=== PATIENT | male | born 1965 | race Caucasian/White ===

== ENCOUNTER → 2018-03-13 | Outpatient (CLI) | payer OTHER ==
[2018-03-13 07:35] LABS: Basophils % (A) 0 %; Eosinophils # (A) 0.2 k/uL (0-0.7); Eosinophils % (A) 3 %; HCT 45.9 % (39.0-53.0); HGB 15.2 gm/dL (13.0-17.5); Lymphocytes # (A) 1.9 k/uL (1.0-4.8); Lymphocytes % (A) 25 %; MCH 30.5 pg (25.0-35.0); MCHC 33.2 g/dL (31.0-37.0); Mean Platelet Volume 6.9; Monocytes # (A) 0.4 k/uL (0-1.0); Monocytes % (A) 5 %; Neutrophils # (A) 4.9 k/uL (1.3-7.7); Neutrophils % (A) 64 %; Platelet Count 353 k/uL (150-450); RBC 4.99 m/uL (4.30-5.90); RDW 12.4 % (11.5-15.5); WBC 7.7 k/uL (3.8-10.6)
[2018-03-13 09:34] LABS: ALT 33 U/L (21-72); AST 24 U/L (17-59); Albumin 4.2 g/dL (3.5-5.0); Alkaline Phosphatase 70 U/L (38-126); Anion Gap 12 mmol/L; Blood Urea Nitrogen 17 mg/dL (9-20); Calcium 9.2 mg/dL (8.4-10.2); Carbon Dioxide 27 mmol/L (22-30); Chloride 100 mmol/L (98-107); Cholesterol 135 mg/dL (<200); Glucose 105 mg/dL (74-99); HDL Cholesterol 62 mg/dL (40-60); LDL Cholesterol,Calculated 60 mg/dL (0-99); Potassium 3.7 mmol/L (3.5-5.1); Sodium 139 mmol/L (137-145); Total Bilirubin 0.5 mg/dL (0.2-1.3); Total Protein 7.4 g/dL (6.3-8.2); Triglycerides 67 mg/dL (<150)
[2018-03-13 09:49] LABS: T4, Free (Free Thyroxine) 1.21 ng/dL (0.78-2.19)
[2018-03-13 10:03] LABS: PSA Annual Screen 1.24 ng/mL (0.00-4.00)
== END | disposition home or self-care (01) ==
LOC: LABWHC1 06:32
PROVIDERS: ATTEND Family Medicine
DX: Z00.00 Encounter for general adult medical examination without abnormal findings (principal); Z12.5 Encounter for screening for malignant neoplasm of prostate
CPT/HCPCS: 84439; 80061; 80053; 84443; 85025; 36415; G0103

== ENCOUNTER 2018-12-01 18:44 | Emergency (ER) | payer OTHER ==
[2018-12-01 18:50] VITALS: TEMP 98.7
[2018-12-01] MEDS ORDERED: SODIUM CHLORIDE 0.9% 1,000 ML IV STA (19:13)
[2018-12-01 19:53] LABS: Basophils % (A) 0 %; Eosinophils # (A) 0.4 k/uL (0-0.7); Eosinophils % (A) 3 %; HCT 40.4 % (39.0-53.0); HGB 13.5 gm/dL (13.0-17.5); Lymphocytes % (A) 14 %; MCH 30.2 pg (25.0-35.0); MCHC 33.4 g/dL (31.0-37.0); MCV 90.6 fL (80.0-100.0); Mean Platelet Volume 6.8; Monocytes # (A) 0.9 k/uL (0-1.0); Monocytes % (A) 6 %; Neutrophils # (A) 10.8 k/uL (1.3-7.7); Neutrophils % (A) 76 %; Platelet Count 499 k/uL (150-450); RBC 4.45 m/uL (4.30-5.90); RDW 12.7 % (11.5-15.5); WBC 14.2 k/uL (3.8-10.6)
[2018-12-01 20:07] LABS: ALT 36 U/L (21-72); AST 18 U/L (17-59); Albumin 3.6 g/dL (3.5-5.0); Alkaline Phosphatase 78 U/L (38-126); Amylase 42 U/L (30-110); Anion Gap 7 mmol/L; Blood Urea Nitrogen 14 mg/dL (9-20); Calcium 8.9 mg/dL (8.4-10.2); Carbon Dioxide 26 mmol/L (22-30); Chloride 104 mmol/L (98-107); Glucose 111 mg/dL (74-99); Lipase 50 U/L (23-300); Potassium 4.3 mmol/L (3.5-5.1); Sodium 137 mmol/L (137-145); Total Bilirubin 0.5 mg/dL (0.2-1.3); Total Protein 7.4 g/dL (6.3-8.2)
[2018-12-01] MEDS ORDERED: BENZOCAINE/MENTHOL LOZENG 1 EACH LOZENGE MUCOUS MEM STA (20:09)
--- NOTE | 2018-12-01 20:09 | XR ---
Abdomen single view. History fever. Cough. Comparison none. FINDINGS: 2 views upright were obtained and show no sign of intestinal obstruction or pneumoperitoneum. Fecal p attern is normal. There are no pathologic calcifications over the kidneys. There are clips at the gas troesophageal junction. Impression Nonacute abdomen.
[2018-12-01 20:10] LABS: Creatine Kinase 46 U/L (55-170)
[2018-12-01] MEDS ORDERED: BENZONATATE 100 MG CAP PO STA (20:10)
--- NOTE | 2018-12-01 20:10 | XR ---
EXAMINATION TYPE: XR chest 2V DATE OF EXAM: 12/01/2018 COMPARISON: 05/26/2015 HISTORY: Cough and fever TECHNIQUE: Frontal and lateral views of the chest are obtained. FINDINGS: Heart and mediastinum are normal. There is a small infiltrate in the left lower lobe. The other lung adrian are clear. There are no hilar masses. There is no pleural effusion. IMPRESSION: Mild left lower lobe pneumonia. This appears improved compared to old exam.
--- NOTE | 2018-12-01 20:21 | ED ---
URI HPI - General Chief Complaint: Upper Respiratory Infection Stated Complaint: fever, cough, SOB Time Seen by Provider: 12/01/18 18:57 Source: patient Mode of arrival: ambulatory Limitations: no limitations - History of Present Illness Initial Comments: 53-year-old male patient presents to the emergency department today for evaluation of persistent cough and fever. Patient states the cough started approximately 2 weeks ago. States that it has persisted and become worse. States he has now developed fever over the last week. States this has been as high as 102F at home. States he has had chills and body aches with this. He denies any sputum production with this cough. Denies any hemoptysis. Denies any chest pain but states that he has been having increasing difficulty with breathing especially with activity. Patient denies any history of smoking. Denies any other upper respiratory symptoms with onset of cough. Patient denies any recent rash, abdominal pain, nausea, vomiting, diarrhea, constipation, back pain, numbness, tingling, dizziness, weakness, hematuria, dysuria, urinary urgency, urinary frequency, headache, visual changes, or any other complaints. - Related Data Home Medications Medication Instructions Recorded Confirmed Amlodipine/Valsartan/Hcthiazid 1 tab PO DAILY 03/25/15 12/01/18 [Exforge Hct 10-320-25 mg Tab] Acetaminophen [Tylenol Extra 1,000 mg PO Q6H PRN 12/01/18 12/01/18 Strength] Cholecalciferol (Vitamin D3) 2,000 unit PO DAILY 12/01/18 12/01/18 [Vitamin D3] Promethaz-Cod 6.25-10 mg/5 ml 5 ml PO Q6HR PRN 12/01/18 12/01/18 [Phenergan with Codeine] Previous Rx's Medication Instructions Recorded Albuterol Sulfate [Proair Hfa] 1 - 2 puff INHALATION Q6HR PRN #1 12/01/18 inhaler Azithromycin [Zithromax Z-pack] 0 mg PO DIRECTED #6 tab 12/01/18 Benzonatate [Tessalon Perles] 100 mg PO TID #15 cap 12/01/18 Allergies Allergy/AdvReac Type Severity Reaction Status Date / Time acetaminophen [From Leonidas] Allergy Hallucinati Verified 12/01/18 19:51 ons hydrocodone bitartrate Allergy Hallucinati Verified 12/01/18 19:51 [From Leonidas] ons Review of Systems ROS Statement: Those systems with pertinent positive or pertinent negative responses have been documented in the HPI. ROS Other: All systems not noted in ROS Statement are negative. Past Medical History Past Medical History: GERD/Reflux, Hypertension, Osteoarthritis (OA), Prostate Disorder Additional Past Medical History / Comment(s): HIATAL HERNIA History of Any Multi-Drug Resistant Organisms: None Reported Past Surgical History: Orthopedic Surgery Additional Past Surgical History / Comment(s): LEFT ROTATOR CUFF Past Anesthesia/Blood Transfusion Reactions: No Reported Reaction Past Psychological History: No Psychological Hx Reported Smoking Status: Never smoker Past Alcohol Use History: Occasional Past Drug Use History: None Reported - Past Family History Mother Family Medical History: No Reported History Sister(s) Family Medical History: Cancer Additional Family Medical History / Comment(s): BREAST General Exam Limitations: no limitations General appearance: alert, in no apparent distress, other (This is a well- developed, well-nourished adult male patient in no acute distress. Vital signs upon presentation are temperature 98.7F, pulse 110, respirations 20, blood pressure 151/91, pulse ox 100% on room air.) Eye exam: Present: normal appearance, PERRL, EOMI. Absent: scleral icterus, conjunctival injection, periorbital swelling ENT exam: Present: normal exam, normal oropharynx, mucous membranes moist, TM's normal bilaterally Respiratory exam: Present: normal lung sounds bilaterally. Absent: respiratory distress, wheezes, rales, rhonchi, stridor Cardiovascular Exam: Present: normal rhythm, tachycardia, normal heart sounds. Absent: systolic murmur, diastolic murmur, rubs, gallop, clicks GI/Abdominal exam: Present: soft, normal bowel sounds. Absent: distended, tenderness, guarding, rebound, rigid Neurological exam: Present: alert, oriented X3, CN II-XII intact Psychiatric exam: Present: normal affect, normal mood Skin exam: Present: warm, dry, intact, normal color. Absent: rash Course Vital Signs 12/01/18 12/01/18 12/01/18 18:47 19:29 19:30 Temperature 98.7 F Pulse Rate 110 H Respiratory 20 Rate Blood Pressure 151/91 146/91 146/91 O2 Sat by Pulse 100 Oximetry 12/01/18 12/01/18 12/01/18 20:00 20:30 21:00 Temperature Pulse Rate 91 Respiratory 18 Rate Blood Pressure 113/85 131/76 131/79 O2 Sat by Pulse 100 Oximetry Medical Decision Making - Medical Decision Making 53-year-old male patient presents to emergency department today for complaints of cough, shortness of breath, and fever. Physical examination was unremarkable. Lungs are clear to auscultation with good air movement. Vital signs were stable with normal oxygen saturation. Labs reviewed and did reveal elevated white blood cell count of 14.6. Chest x-ray did reveal left lower lobe pneumonia. Did discuss findings and results with the patient. We did give IM dose of Rocephin and sent with a prescription for azithromycin. We did discuss return parameters in detail. He is instructed to follow-up with his primary care physician for recheck in 1-2 days. Return parameters were discussed in detail. He verbalizes understanding and agrees with this plan. - Lab Data Result diagrams: 12/01/18 19:35 12/01/18 19:35 Lab Results 12/01/18 12/01/18 12/01/18 Range/Units 19:35 19:35 19:35 WBC 14.2 H (3.8-10.6) k/uL RBC 4.45 (4.30-5.90) m/uL Hgb 13.5 (13.0-17.5) gm/dL Hct 40.4 (39.0-53.0) % MCV 90.6 (80.0-100.0) fL MCH 30.2 (25.0-35.0) pg MCHC 33.4 (31.0-37.0) g/dL RDW 12.7 (11.5-15.5) % Plt Count 499 H (150-450) k/uL Neutrophils % 76 % Lymphocytes % 14 % Monocytes % 6 % Eosinophils % 3 % Basophils % 0 % Neutrophils # 10.8 H (1.3-7.7) k/uL Lymphocytes # 2.0 (1.0-4.8) k/uL Monocytes # 0.9 (0-1.0) k/uL Eosinophils # 0.4 (0-0.7) k/uL Basophils # 0.0 (0-0.2) k/uL Sodium 137 (137-145) mmol/L Potassium 4.3 (3.5-5.1) mmol/L Chloride 104 (98-107) mmol/L Carbon Dioxide 26 (22-30) mmol/L Anion Gap 7 mmol/L BUN 14 (9-20) mg/dL Creatinine 0.85 (0.66-1.25) mg/dL Est GFR (CKD-EPI)AfAm >90 (>60 ml/min/1.73 sqM) Est GFR (CKD-EPI)NonAf >90 (>60 ml/min/1.73 sqM) Glucose 111 H (74-99) mg/dL Plasma Lactic Acid Vu (0.7-2.0) mmol/L Calcium 8.9 (8.4-10.2) mg/dL Total Bilirubin 0.5 (0.2-1.3) mg/dL AST 18 (17-59) U/L ALT 36 (21-72) U/L Alkaline Phosphatase 78 (38-126) U/L Total Creatine Kinase 46 L (55-170) U/L CK-MB (CK-2) 0.3 (0.0-2.4) ng/mL CK-MB (CK-2) Rel Index 0.7 Troponin I <0.012 (0.000-0.034) ng/mL Total Protein 7.4 (6.3-8.2) g/dL Albumin 3.6 (3.5-5.0) g/dL Amylase 42 (30-110) U/L Lipase 50 (23-300) U/L 12/01/18 Range/Units 19:35 WBC (3.8-10.6) k/uL RBC (4.30-5.90) m/uL Hgb (13.0-17.5) gm/dL Hct (39.0-53.0) % MCV (80.0-100.0) fL MCH (25.0-35.0) pg MCHC (31.0-37.0) g/dL RDW (11.5-15.5) % Plt Count (150-450) k/uL Neutrophils % % Lymphocytes % % Monocytes % % Eosinophils % % Basophils % % Neutrophils # (1.3-7.7) k/uL Lymphocytes # (1.0-4.8) k/uL Monocytes # (0-1.0) k/uL Eosinophils # (0-0.7) k/uL Basophils # (0-0.2) k/uL Sodium (137-145) mmol/L Potassium (3.5-5.1) mmol/L Chloride (98-107) mmol/L Carbon Dioxide (22-30) mmol/L Anion Gap mmol/L BUN (9-20) mg/dL Creatinine (0.66-1.25) mg/dL Est GFR (CKD-EPI)AfAm (>60 ml/min/1.73 sqM) Est GFR (CKD-EPI)NonAf (>60 ml/min/1.73 sqM) Glucose (74-99) mg/dL Plasma Lactic Acid Vu 1.3 (0.7-2.0) mmol/L Calcium (8.4-10.2) mg/dL Total Bilirubin (0.2-1.3) mg/dL AST (17-59) U/L ALT (21-72) U/L Alkaline Phosphatase (38-126) U/L Total Creatine Kinase (55-170) U/L CK-MB (CK-2) (0.0-2.4) ng/mL CK-MB (CK-2) Rel Index Troponin I (0.000-0.034) ng/mL Total Protein (6.3-8.2) g/dL Albumin (3.5-5.0) g/dL Amylase (30-110) U/L Lipase (23-300) U/L - EKG Data -: EKG Interpreted by Ga EKG Comments: EKG obtained in 192 shows sinus tachycardia with a ventricular rate of 108, DE interval 138, QRS duration 74, QT 312, QTC 418. No evidence of ST elevation or depression. - Radiology Data Radiology results: report reviewed, image reviewed KUB x-ray of the abdomen is obtained. Report was reviewed in its entirety. Impression by Dr. Cross shows nonacute abdomen. Two-view x-ray of the chest is obtained. Report was reviewed in its entirety. Impression by Dr. Jaramillo shows mild left lower lobe pneumonia. This appears improved compared to old exam. Disposition Clinical Impression: Left lower lobe pneumonia Disposition: HOME SELF-CARE Condition: Good Instructions (If sedation given, give patient instructions): Pneumonia (ED) Additional Instructions: Complete antibiotic prescription in full. Take medications as directed. Follow up with your primary care physician for recheck in 1-2 days. Return to the emergency department for recheck in 1-2 days. Prescriptions: Albuterol Sulfate [Proair Hfa] 1 - 2 puff INHALATION Q6HR PRN #1 inhaler PRN Reason: Shortness Of Breath Azithromycin [Zithromax Z-pack] 0 mg PO DIRECTED #6 tab Benzonatate [Tessalon Perles] 100 mg PO TID #15 cap Is patient prescribed a controlled substance at d/c from ED?: No Referrals: Nathan Ortez MD [Primary Care Provider] - 1-2 days Time of Disposition: 20:49
[2018-12-01 20:23] LABS: Creatine Kinase MB 0.3 ng/mL (0.0-2.4); Troponin I <0.012 ng/mL (0.000-0.034)
[2018-12-01] MEDS ORDERED: cefTRIAXone 1,000 MG VIAL (IM USE) IM STA (20:47)
[2018-12-01 21:05] VITALS: BP 131/79; PULSE 91; RESP 18
== END 2018-12-01 21:11 | disposition home or self-care (01) ==
LOC: EC 18:44
DX: J18.9 Pneumonia, unspecified organism (principal); I10 Essential (primary) hypertension; M19.90 Unspecified osteoarthritis, unspecified site; Z79.899 Other long term (current) drug therapy; Z88.6 Allergy status to analgesic agent; Z88.5 Allergy status to narcotic agent
CPT/HCPCS: 36415; 93005; 80053; 82150; 82550; 82553; 83605; 83690; 84484; 85025; 87040; 71046; 74018; 99285; 96360; 96372; J0696

== ENCOUNTER → 2019-04-12 | Outpatient (CLI) | payer OTHER ==
--- NOTE | 2019-04-12 14:05 | XR ---
EXAMINATION TYPE: XR chest 2V DATE OF EXAM: 04/12/2019 COMPARISON: 12/01/2018 HISTORY: Pneumonia. Follow-up exam. TECHNIQUE: Frontal and lateral views of the chest are obtained. FINDINGS: Retrocardiac airspace disease has resolved in the interim. There is no focal air space [place], pleural effusion, or pneumothorax seen. The cardiac silhouette size is likely enlarged. The osseous structures are intact. Moderate multilevel degenerative changes of the spine are noted. IMPRESSION: No acute cardiopulmonary process. Resolution of the previously seen left basilar airspac e disease. History notes pulmonary nodule. No discrete pulmonary nodule is seen on chest x-ray howeve r CT would be committed if there is concern for pulmonary nodule as there is increased spatial resolu tion and increased sensitivity.
== END ==
LOC: RADXRMAIN 09:31
PROVIDERS: ATTEND Family Medicine
DX: J18.9 Pneumonia, unspecified organism (principal)
CPT/HCPCS: 71046

== ENCOUNTER → 2019-07-10 | Outpatient (CLI) | payer OTHER ==
--- NOTE | 2019-07-10 14:20 | FL ---
EXAMINATION TYPE: FL barium swallow DATE OF EXAM: 07/10/2019 CLINICAL HISTORY: Status post Vahid fundoplication 5 years ago. Gastroesophageal reflux and dysphagi a. TECHNIQUE: A single contrast esophagram is performed utilizing thin barium. A total of 2.08 minutes of fluoroscopic time was utilized during procedure. 52 fluoroscopic images were saved. COMPARISON: None FINDINGS: The patient swallows barium without difficulty. Barium extends readily to the distal esopha antwan, however at the distal esophagus near the gastroesophageal junction there is delay and narrowing. Incomplete stricture is seen with the ventral passage of contrast through the gastroesophageal junct ion. There is some mild proximal dilatation of the esophagus prior to passage. Discoordinated contrac tions are seen in the upright position exaggerated on the supine position with few tertiary contracti ons. No focal outpouching is seen. Mild intraesophageal reflux in the upright position and severe int raesophageal reflux on the supine position are seen. No gastroesophageal reflux is seen during the ex amination. IMPRESSION: Incomplete stricture at the gastroesophageal junction resulting in mild intraesophageal reflux and th e upright position and severe in the supine position.
== END ==
LOC: RADUSWWP 09:04
PROVIDERS: ATTEND Surgery Plastic and Reconstructive Surgery
DX: K21.9 Gastro-esophageal reflux disease without esophagitis (principal)
CPT/HCPCS: 74220

== ENCOUNTER → 2019-07-10 | Outpatient (CLI) | payer OTHER | END | disposition home or self-care (01) | LOC: LABPAT 09:07 | PROVIDERS: ATTEND Surgery Plastic and Reconstructive Surgery | DX: Z01.810 Encounter for preprocedural cardiovascular examination (principal) | CPT/HCPCS: 93005 ==

== ENCOUNTER 2019-07-18 07:55 | Day surgery (SDC) | payer OTHER ==
[2019-07-17 09:43] VITALS: BMI 32.1
--- NOTE | 2019-07-17 19:33 | P.GSHP ---
History of Present Illness H&P Date: 07/18/19 CHIEF COMPLAINT: GERD and colon screen HISTORY OF PRESENT ILLNESS: The patient is a 54-year-old male who presents with gastroesophageal reflux disease and need for colon screen. Upper and lower endoscopy were offered for further evaluation and management. PAST MEDICAL HISTORY: Please see list. PAST SURGICAL HISTORY: Please see list. MEDICATIONS: Please see list. ALLERGIES: Please see list. SOCIAL HISTORY: No illicit drug use FAMILY HISTORY: No reports of Crohn disease or ulcerative colitis. REVIEW OF ORGAN SYSTEMS: CONSTITUTIONAL: No reports of fevers or chills. GI: Denies any blood in stools or constipation. PHYSICAL EXAM: VITAL SIGNS: Stable GENERAL: Well-developed pleasant in no acute distress. HEENT: No scleral icterus. Extraocular movements grossly intact. Moist buccal mucosa. NECK: Supple without lymphadenopathy. CHEST: Unlabored respirations. Equal bilateral excursions. CARDIOVASCULAR: Regular rate and rhythm. Distal 2+ pulses. ABDOMEN: Soft, nondistended. MUSCULOSKELETAL: No clubbing, cyanosis, or edema. ASSESSMENT: 1. Gastroesophageal reflux disease 2. Colon screen. PLAN: 1. Recommend proceeding with an upper and lower endoscopy Past Medical History Past Medical History: GERD/Reflux, Hypertension, Osteoarthritis (OA), Prostate Disorder Additional Past Medical History / Comment(s): HIATAL HERNIA, dysphagia w/solids sarah. in the AM, hx. colon polyps, loose stools History of Any Multi-Drug Resistant Organisms: None Reported Past Surgical History: Orthopedic Surgery Additional Past Surgical History / Comment(s): LEFT ROTATOR CUFF, repair of hiatal hernia Past Anesthesia/Blood Transfusion Reactions: No Reported Reaction Smoking Status: Never smoker - Past Family History Mother Family Medical History: No Reported History Sister(s) Family Medical History: Cancer Additional Family Medical History / Comment(s): BREAST Medications and Allergies Home Medications Medication Instructions Recorded Confirmed Type Amlodipine/Valsartan/Hcthiazid 1 tab PO DAILY 03/25/15 07/17/19 History [Exforge Hct 10-320-25 mg Tab] Omeprazole [PriLOSEC] 40 mg PO DAILY 07/17/19 07/17/19 History Allergies Allergy/AdvReac Type Severity Reaction Status Date / Time acetaminophen [From Antimony] AdvReac Hallucinati Verified 07/17/19 09:11 ons hydrocodone bitartrate AdvReac Hallucinati Verified 07/17/19 09:11 [From Antimony] ons
[~2019-07-18 07:55] MED LIST: LACTATED RINGERS 1,000 ML IV SCH
[2019-07-18 08:14] VITALS: RESP 16; TEMP 97.9
[2019-07-18] MEDS ORDERED: LIDOCAINE 1% 20 ML VIAL (10MG/ML) FOR IV START INTRADERMA ONE (08:15)
[2019-07-18] MEDS ORDERED: PROPOFOL 10 MG/ML 20 ML VIAL IV ONE (08:21)
[2019-07-18] MEDS ORDERED: LIDOCAINE 1% INJ 10MG/ML (20 ML MDV) ONE (08:21)
--- NOTE | 2019-07-18 08:58 | P.PCN ---
Date of Procedure: 07/18/19 Description of Procedure: PREOPERATIVE DIAGNOSIS: Gastroesophageal reflux disease. Previous history of Vahid fundoplasty POSTOPERATIVE DIAGNOSIS: Gastroesophageal reflux disease. Previous history of Vahid fundoplasty Diaphragmatic hiatal hernia, recurrent with erosive esophagitis OPERATION: Esophagogastroduodenoscopy SURGEON: Marily Bain MD ANESTHESIA: MAC. INDICATIONS: The patient is a 54-year-old male who presents with a history of reflux disease. Benefits and risks of the procedure were described. Informed consent was obtained. DESCRIPTION: The patient was brought into the endoscopy suite and laid in the left lateral decubitus position. An Olympus gastroscope was passed along the posterior oropharynx down to the distal esophagus where the squamocolumnar junction was encountered at 41 cm from the incisors. The stomach was entered and no bile reflux was found. Additional findings are listed below. Biopsies with cold forceps were obtained of the antrum. The first through third portion of the duodenum was examined and unremarkable. Retroflexion of the scope confirmed Hill grade 3 lower esophageal valve. The squamocolumnar junction demonstrated LA grade B erosive esophagitis. The stomach was desufflated. The patient tolerated the procedure well. FINDINGS: Squamocolumnar junction 33 cm from the incisors. Diaphragmatic hiatus at 40 cm. Hiatal hernia, 7 cm Hill grade 3 lower esophageal valve. LA grade B erosive esophagitis. No active duodenitis. RECOMMENDATIONS: Upper endoscopy as needed.
--- NOTE | 2019-07-18 08:59 | P.PCN ---
Date of Procedure: 07/18/19 Description of Procedure: PREOPERATIVE DIAGNOSIS: Colonoscopy screening. History of colon polyps POSTOPERATIVE DIAGNOSIS: Colonoscopy screening. History of colon polyps Diverticulosis, scattered. OPERATION: Colonoscopy to the ileocecal valve and appendiceal orifice. SURGEON: Marily Bain MD. ANESTHESIA: MAC. INDICATIONS: The patient is a 54-year-old female who presents for colonoscopy screening. Last colonoscopy 5 years ago. Benefits and risks were described and informed consent was obtained. DESCRIPTION OF PROCEDURE: The patient had undergone Suprep. He had been brought into the operating room and laid in the left lateral decubitus position. After adequate intravenous sedation, the rectum was examined with 2% lidocaine jelly. No external hemorrhoids were encountered. The rectal tone was within normal limits. No lesions were palpated in the rectal vault. An Olympus colonoscope was advanced until the ileocecal valve and appendiceal orifice were clearly viewed. The prep was good. Scattered diverticulosis was encountered. No colonic polyps were found. No evidence of focal colitis was found. Retroflexion of the scope demonstrated grade 1 internal hemorrhoids without active bleeding or inflammation. The colon was desufflated. The patient had tolerated the procedure well. Withdrawal time was over 6 minutes. FINDINGS: Aronchick preparation quality scale 2 (1-5) Internal hemorrhoids, grade 1 No external prolapsed hemorrhoids. No arteriovenous malformations. No adenomatous polyps. No focal colitis. Scattered diverticulosis RECOMMENDATIONS: Lower endoscopy in 5 years, 2023 Plan - Discharge Summary Discharge Rx Participant: No New Discharge Prescriptions: No Action Amlodipine/Valsartan/Hcthiazid [Exforge Hct 10-320-25 mg Tab] 1 tab PO DAILY Omeprazole [PriLOSEC] 40 mg PO DAILY Discharge Medication List Amlodipine/Valsartan/Hcthiazid [Exforge Hct 10-320-25 mg Tab] 1 tab PO DAILY 03/25/15 [History] Omeprazole [PriLOSEC] 40 mg PO DAILY 07/17/19 [History] Follow up Appointment(s)/Referral(s): Marily Bain MD [STAFF PHYSICIAN] - 07/29/19 Patient Instructions/Handouts: Hiatal Hernia (DC), Diverticulosis (DC), Diverticulosis (GEN), Diverticulosis Diet (GEN) Discharge Disposition: HOME SELF-CARE
[2019-07-18 09:14] VITALS: BP 152/89; PULSE 85
== END 2019-07-18 09:24 | disposition home or self-care (01) ==
LOC: ORWHC2ENDO 07:55
PROVIDERS: ATTEND Surgery Plastic and Reconstructive Surgery
DX: K21.0 Gastro-esophageal reflux disease with esophagitis (principal); Z12.11 Encounter for screening for malignant neoplasm of colon; Z86.010 Personal history of colon polyps; K44.9 Diaphragmatic hernia without obstruction or gangrene; K57.30 Diverticulosis of large intestine without perforation or abscess without bleeding; I10 Essential (primary) hypertension; M19.90 Unspecified osteoarthritis, unspecified site; Z80.3 Family history of malignant neoplasm of breast; Z79.899 Other long term (current) drug therapy; Z88.5 Allergy status to narcotic agent; K64.0 First degree hemorrhoids
CPT/HCPCS: 43235; J2001; J2704; G0105

== ENCOUNTER → 2019-10-11 | Outpatient (CLI) | payer OTHER ==
[2019-10-11 09:23] LABS: HCT 44.5 % (39.0-53.0); HGB 15.1 gm/dL (13.0-17.5); MCH 30.9 pg (25.0-35.0); MCHC 33.9 g/dL (31.0-37.0); MCV 91.3 fL (80.0-100.0); Mean Platelet Volume 7.4; Platelet Count 370 k/uL (150-450); RBC 4.88 m/uL (4.30-5.90); RDW 12.2 % (11.5-15.5); WBC 5.5 k/uL (3.8-10.6)
== END | disposition home or self-care (01) ==
LOC: LABPAT 08:26
PROVIDERS: ATTEND Anesthesiology
DX: Z01.812 Encounter for preprocedural laboratory examination (principal); K44.9 Diaphragmatic hernia without obstruction or gangrene
CPT/HCPCS: 36415; 85027

== ENCOUNTER 2019-10-17 11:46 | Observation (INO) | payer OTHER ==
[2019-10-10 12:11] VITALS: BMI 30.6
--- NOTE | 2019-10-16 22:19 | P.GSHP ---
History of Present Illness H&P Date: 10/17/19 CHIEF COMPLAINT: Paraesophageal hiatal hernia with gastroesophageal reflux disease. HISTORY OF PRESENT ILLNESS: The patient is a 54-year-old male who presents with paraesophageal hiatal hernia. Now she presents for surgical intervention. PAST MEDICAL HISTORY: Please see list. PAST SURGICAL HISTORY: Please see list. MEDICATIONS: Please see list. ALLERGIES: Please see list. SOCIAL HISTORY: No illicit drug use FAMILY HISTORY: No reports of Crohn disease or ulcerative colitis. REVIEW OF ORGAN SYSTEMS: CONSTITUTIONAL: No reports of fevers or chills. GI: Denies any blood in stools or constipation. PHYSICAL EXAM: VITAL SIGNS: Stable GENERAL: Well-developed pleasant and in no acute distress. HEENT: No scleral icterus. Extraocular movements grossly intact. Moist buccal mucosa. NECK: Supple without lymphadenopathy. CHEST: Unlabored respirations. Equal bilateral excursions. CARDIOVASCULAR: Regular rate and rhythm. Distal 2+ pulses. ABDOMEN: Soft, nondistended. No peritoneal signs. MUSCULOSKELETAL: No clubbing, cyanosis, or edema. SKIN: Well-perfused. Good skin turgor. ASSESSMENT: 1. Diaphragmatic paraesophageal hiatal hernia with severe gastroesophageal reflux disease. PLAN: 1. Recommend proceeding with a robotic paraesophageal hiatal hernia with possi ble mesh. 2. Benefits and risks of surgical intervention was discussed including possibility of open technique. 3. Inpatient hospitalization recommended of 2 nights 4. DVT prophylaxis. 5. Antibiotic prophylaxis. 6. She has also completed a very low caloric high-protein diet to address underlying hepatomegaly. Past Medical History Past Medical History: GERD/Reflux, Hypertension, Osteoarthritis (OA), Prostate Disorder Additional Past Medical History / Comment(s): HIATAL HERNIA History of Any Multi-Drug Resistant Organisms: None Reported Past Surgical History: Orthopedic Surgery Additional Past Surgical History / Comment(s): LEFT ROTATOR CUFF Past Anesthesia/Blood Transfusion Reactions: No Reported Reaction Smoking Status: Never smoker - Past Family History Mother Family Medical History: No Reported History Sister(s) Family Medical History: Cancer Additional Family Medical History / Comment(s): BREAST Medications and Allergies Home Medications Medication Instructions Recorded Confirmed Type Amlodipine/Valsartan/Hcthiazid 1 tab PO DAILY 03/25/15 10/10/19 History [Exforge Hct 10-320-25 mg Tab] Omeprazole [PriLOSEC] 40 mg PO DAILY 07/17/19 10/10/19 History Allergies Allergy/AdvReac Type Severity Reaction Status Date / Time hydrocodone bitartrate AdvReac Hallucinati Verified 10/10/19 11:59 [From Merom] ons
[~2019-10-17 11:46] MED LIST changes: +ACETAMINOPHEN TAB 500 MG TAB PO STA; +CHLORHEXIDINE GLUCONATE 15 ML CUP MUCOUS MEM ONE; +DEXAMETHASONE SOD PHOSPHATE 10 MG/ML 1 ML VIAL IV ONE; +GABAPENTIN 300 MG CAP PO STA; +HEPARIN SODIUM,PORCINE 5,000 UNIT/ML 1 ML VIAL SQ ONE; +HYDROmorphone 0.5 MG/0.5 ML SYRINGE IVP PRN; +LIDOCAINE 1% 20 ML VIAL (10MG/ML) FOR IV START INTRADERMA PRN; +MIDAZOLAM 2 MG/2 ML VIAL IV PRN; +ONDANSETRON 4 MG/2 ML VIAL IVP ONE; +PANTOPRAZOLE 40 MG/10 ML VIAL IV STA; +SCOPOLAMINE 1.5MG/72HR PATCH TRANSDERM ONE; +TAMSULOSIN 0.4 MG CAP.ER.24H PO STA
[2019-10-17 13:02] LABS: ALT 19 U/L (4-49); AST 33 U/L (17-59); African American GFR (CKD) >90 (>60 ml/min/1.73 sqM); Albumin 4.7 g/dL (3.5-5.0); Alkaline Phosphatase 78 U/L (38-126); Anion Gap 12 mmol/L; Blood Urea Nitrogen 16 mg/dL (9-20); Calcium 9.6 mg/dL (8.4-10.2); Carbon Dioxide 26 mmol/L (22-30); Chloride 103 mmol/L (98-107); Glucose 89 mg/dL (74-99); Non-African American GFR(CKD) >90 (>60 ml/min/1.73 sqM); Sodium 141 mmol/L (137-145); Total Bilirubin 0.9 mg/dL (0.2-1.3); Total Protein 8.6 g/dL (6.3-8.2)
[2019-10-17 13:04] LABS: Potassium 4.2 mmol/L (3.5-5.1)
[2019-10-17 13:27] LABS: Basophils % (A) 0 %; Eosinophils # (A) 0.2 k/uL (0-0.7); Eosinophils % (A) 2 %; HCT 44.4 % (39.0-53.0); HGB 15.2 gm/dL (13.0-17.5); Lymphocytes # (A) 1.7 k/uL (1.0-4.8); Lymphocytes % (A) 15 %; MCHC 34.3 g/dL (31.0-37.0); MCV 90.6 fL (80.0-100.0); Mean Platelet Volume 7.7; Monocytes # (A) 0.6 k/uL (0-1.0); Monocytes % (A) 6 %; Neutrophils # (A) 8.3 k/uL (1.3-7.7); Neutrophils % (A) 76 %; Platelet Count 367 k/uL (150-450); RDW 12.4 % (11.5-15.5); WBC 10.9 k/uL (3.8-10.6)
[2019-10-17] MEDS ORDERED: MIDAZOLAM 2 MG/2 ML VIAL IVP ONE (13:44)
[2019-10-17] MEDS ORDERED: fentaNYL (PF) 50 MCG/ML 2 ML AMP IV ONE (13:44)
--- NOTE | 2019-10-17 14:27 | P.ANPRN ---
Procedure Note - Anesthesia - Nerve Block Performed Bilateral Transversus Abdominis Single Time Out Performed: Yes Date of Procedure: 10/17/19 Procedure Start Time: 13:42 Procedure Stop Time: 13:47 Location of Patient: PreOp Indication: Acute Post-Operative Pain, Dx/Pain Location, Requested by Surgeon Sedation Type: Sedate with meaningful contact maintained Position: Supine Catheter: None Needle Types: Pajunk Needle Gauge: 21 Ultrasound used to visualize needle placement: Yes Ultrasound used to observe medication spread: Yes Injectate: Other (see comment) (0.5% ropivacaine 15cc with 2% lidocaine with 1:200k epi 5cc each side) Blood Aspirated: No Pain Paresthesia on Injection Noted: No Resistance on Injection: Normal Image Stored and Saved: Yes Events: Uneventful and Well Tolerated
[2019-10-17] MEDS ORDERED: SUCCINYLCHOLINE CHLORIDE 100 MG/5 ML SYR IV ONE (14:45)
[2019-10-17] MEDS ORDERED: PROPOFOL 10 MG/ML 20 ML VIAL IV ONE (14:45)
[2019-10-17] MEDS ORDERED: LIDOCAINE 1% INJ 10MG/ML (20 ML MDV) ONE (14:45)
[2019-10-17] MEDS ORDERED: NEOSTIGMINE 1 MG/ML 10 ML VIAL ONE (14:45)
[2019-10-17] MEDS ORDERED: fentaNYL (PF) 50 MCG/ML 2 ML AMP ONE (14:45)
[2019-10-17] MEDS ORDERED: ROPIVACAINE 5 MG/ML 30 ML VIAL ONE (14:45)
[2019-10-17] MEDS ORDERED: ePHEDrine SULFATE/0.9% NACL/PF 50 MG/5 ML SYRINGE IV ONE (14:45)
[2019-10-17] MEDS ORDERED: LIDOCAINE 2%-EPI 1:100,000 20 ML VIAL ONE (14:45)
[2019-10-17] MEDS ORDERED: MIDAZOLAM 2 MG/2 ML VIAL ONE (14:45)
[2019-10-17] MEDS ORDERED: GLYCOPYRROLATE 0.2 MG/ML 2 ML VIAL ONE (14:45)
[2019-10-17] MEDS ORDERED: ROCURONIUM BROMIDE 10 MG/ML 10 ML VIAL IV ONE (14:45)
[2019-10-17] MEDS ORDERED: PHENYLEPHRINE-0.9% NACL SYG 1 MG/10 ML SYRINGE ONE (14:45)
[2019-10-17] MEDS ORDERED: BUPIVACAIN-EPI 0.25%-1:200,000 30 ML VIAL SQ ONE ×2 (15:08→15:17)
[2019-10-17] MEDS ORDERED: LACTATED RINGERS 1,000 ML IV ONE ×6 (15:32→15:45)
[2019-10-17 18:03] VITALS: RESP 16
[2019-10-17] MEDS ORDERED: NALOXONE 0.4 MG/ML 1 ML VIAL IV PRN (18:41)
[2019-10-17] MEDS ORDERED: ACETAMINOPHEN IV (For NPO) 1,000 MG in EMPTY BAG 1 BAG IVPB ONE (18:41)
[2019-10-17] MEDS ORDERED: diphenhydrAMINE 50 MG/ML 1 ML VIAL IVP PRN (19:38)
--- NOTE | 2019-10-17 19:52 | P.OP ---
Date of Procedure: 10/17/19 Description of Procedure: SURGEON: JANIA DOCKERY MD PREOPERATIVE DIAGNOSES: 1. Paraesophageal hiatal hernia, midline, recurrent 2. Gastroesophageal reflux disease 3. Hypertensive heart disease 4. Ineffective esophageal dysmotility 5. Obesity due to excess calories, BMI 31.1 POSTOPERATIVE DIAGNOSES: 1. Paraesophageal hiatal hernia, midline, recurrent 2. Gastroesophageal reflux disease 3. Hypertensive heart disease 4. Ineffective esophageal dysmotility 5. Obesity due to excess calories, BMI 31.1 6. Mchugh's esophagus 7. Dehydration with hypotension 8. Peritoneal adhesions, left upper quadrant omentum to abdominal wall and perigastric OPERATION: 1. Robotic-assisted da Ernesto Xi laparoscopic takedown of Vahid fundoplasty with extensive lysis of adhesions over 1.5 hour for perigastric adhesions 2. Robotic-assisted da Ernesto Xi laparoscopic reduction and repair of recurrent incarcerated paraesophageal hiatal hernia, 5 x 4 cm, with Andrews Biopatch A 8 x 8 cm. 3. Intraoperative esophagogastroduodenoscopy 4. Placement of 56-Micronesian bougie for pre-existing esophageal stricture Implants: Andrews Biopatch A 8 x 8 cm Anesthesia: GETA, local Estimated Blood Loss (ml): 5 Pathology: none sent Condition: stable Disposition: floor Operative Findings: 1. Recurrent incarcerated paraesophageal hiatal hernia, 7 x 4 cm 2. Severe peritoneal adhesions perigastric with incarcerated hiatal hernia of gastric pouch with obstruction requiring over 1.5 hour of lysis of adhesions 3. Fundoplication undone. 4. Incarcerated stomach 5 cm reduced 5. GE junction 2-cm below diaphragm 6. Evidence of Mchugh's esophagus identified 3 cm 7. Placement of 56 Fr bougie to address pre-existing esophageal dysmotility 8. Adhesions left upper quadrant freed. 9. Transient hypotension secondary to severe dehydration addressed with fluids 10. Console time 113 minutes INDICATIONS: The patient is a 54-year-old male who presents with Mchugh's esophagus, gastroesophageal reflux and a symptomatic diaphragmatic hiatal hernia. Preoperative workup including upper endoscopy demonstrated recurrent hiatal hernia and slipped Vahid fundoplasty. Given the severity of his symptoms, particularly of his symptomatic diaphragmatic hiatal hernia, surgical intervention was offered. Benefits and risks including bleeding, infection, recurrence, dysphagia, injury to the esophagus, and stomach injury to the lung, need for further surgery was described at length. Informed consent was obtained. DESCRIPTION: The patient was brought into the operating room and placed in supine position. Preoperatively he had received heparin subcutaneously for DVT prophylaxis. After general induction, the abdomen was prepped and draped in standard sterile fashion. Knowles catheter was placed. Ioban draping was placed along the abdomen. A timeout protocol was confirmed with the surgical team, for which the patient's name, procedure to be performed including DVT prophylaxis with bilateral SCDs, and preoperative antibiotics were also confirmed. Robotic da Ernesto Xi system was prepped and primed. At 12 cm from the xiphoid to just below the umbilicus, proposed port sites were marked with indelible marker along the left axillary line, left mid-clavicular line with each ports were marked 10 cm from each other. A 5 mm 0 degrees laparoscopic trocar entry was performed along the left upper quadrant. The abdomen was insufflated to 15 mmHg pressure he tolerated well. Diagnostic laparoscopy demonstrated no injury to bowel, viscera, or mesentery. No injury had occurred to the small bowel or viscera. Along the hiatus, moderate perigastric adhesions were found from the previous fundoplasty. Next, one 8 mm robotic port was placed along the right upper abdomen. An 8-mm port was were placed along the left lateral abdominal wall. The camera 8-mm port was maintained along the epigastrium. A 12 mm port was placed along the left upper abdominal wall after exchanging the 5 mm port. Please note that the ports were placed at least 20 cm away from the target anatomy. Care was taken to check that each robotic arm were safely away from collision with the bed or the patient. At the epigastrium, a medium sized Felipe liver retractor was placed under di rect visualization with the [employer] Consultant placed under the right shoulder of the patient. The additional third robotic arm was used. The patient was repositioned in reverse Trendelenburg position at 20-degrees after lowering the bed. The robot was docked above the left side of the patient. Using a grasper for arm 3, a grasper for arm 1, including vessel sealer for arm 4, the robotic system was docked and primed as described. Instruments were interchanged by the data assistant. I had sat at the console. The phrenoesophageal ligament had moderate scarring where the distal esophagus was mobilized circumferentially. Care was taken to avoid any injury to the stomach and esophagus. The hiatal hernia sac was incarcerated into the mediastinum and divided to allow complete mobilization and freeing of the distal esophagus into the abdominal cavity. Care was taken to avoid any gastrotomy to the incarcerated upper pole of the stomach including takedown of the Vahid fundoplasty. Extensive lysis of adhesions went more than 1.5 hours was used for extended dissection of the adherent stomach high into the mediastinum. The hernia sac was divided to release mobility of the esophagus. Dissection went to the mid esophagus. The measured defect was consistent with 7 cm axial length and 4 cm in width. To prevent any injury to the stomach or esophagus, intraoperative EGD was used to monitor the slipped Vahid. Once the hiatus and crura was dissected, nonabsorbable2-0 VLOC suture was placed as a running suture to re-approximate the diaphragmatic hiatus posteriorly. To buttress the repair, a Andrews Biopatch A was prepared along the back table and cut to reinforce the repair as an underlay. The mesh was placed along the crural repair posteriorly then cut in half and tagged using horizontal mattress sutures using 2-0 VLOC. I went to the head of the bed to perform intraoperative esophagogastroduodenoscopy. An Olympus gastroscope was passed through posterior oropharynx, where the GE junction was found just proximal to the diaphragmatic hiatus. Complete takedown of the Vahid was confirmed as a tortuous winding stomach was unraveled. The stomach was entered. Chronic gastritis was found including Mchugh's esophagus. Retroflexion of the scope confirmed Hill grade 1 lower esophageal sphincter. Repeat upper endoscopy confirmed easy movement of the scope. Hill grade 1 lower esophageal sphincter was confirmed. A 56-Micronesian bougie was placed to address pre-existing esophageal dysmotility including hypertensive upper esophageal sphincter for 1 minute. The stomach had been desufflated. This concluded the endoscopic portion of the case. The robot was undocked from the patient. I re-scrubbed into the case. All instruments and pneumoperitoneum were evacuated from the abdominal cavity. Incisions were reapproximated using 4-0 Monocryl in an interrupted subcuticular fashion. All incisions were cleaned using dilute hydrogen peroxide. Fascial incisions were less than 8 mm in size. Liquid glue was applied to the skin. Local anesthetic was infiltrated in all wounds for postop analgesia. Multiple intra-abdominal films were obtained. At the end of the procedure, needle, sponge, and instrument count was verified correct by the certified ophthalmic medical technician. The patient had tolerated the procedure well and was taken to the postanesthesia unit in stable condition. Intraoperative films were reviewed with the patient's family who were pleased with the level of care.
[2019-10-17] MEDS: ALBUTEROL NEBULIZED 2.5 MG/3 ML INHALATION SCH (20:02)
[2019-10-17] MEDS: SODIUM CHLORIDE 0.9% 1,000 ML IV SCH ×3 (20:40→22:30)
[2019-10-17] MEDS: KETOROLAC 30 MG/ML 1 ML VIAL IVP SCH (20:46)
[2019-10-17] MEDS: METOCLOPRAMIDE 5 MG/ML 2 ML VIAL IVP SCH (20:46)
[2019-10-17] MEDS: DEXAMETHASONE SOD PHOSPHATE 4 MG/ML 1 ML VIAL IV SCH (20:46)
[2019-10-17] MEDS ORDERED: HEPARIN SODIUM,PORCINE 5,000 UNIT/ML 1 ML VIAL SQ SCH (21:00)
[2019-10-17] MEDS: 0.9% NACL WITH KCL 20 MEQ/L 1,000 ML IV SCH (23:20)
[2019-10-18] MEDS: KETOROLAC 30 MG/ML 1 ML VIAL IVP SCH ×2 (00:31→06:35)
[2019-10-18] MEDS: HYOSCYAMINE ORAL DROPS 1.875 MG/15 ML BOTTLE PO SCH ×2 (00:32→06:35)
[2019-10-18] MEDS: ONDANSETRON 4 MG/2 ML VIAL IVP SCH ×2 (00:32→06:35)
[2019-10-18] MEDS: SIMETHICONE 40 MG/0.6 ML DROPS 2,000 MG/30 ML BOTTLE PO SCH ×2 (00:32→06:35)
[2019-10-18] MEDS: DEXAMETHASONE SOD PHOSPHATE 4 MG/ML 1 ML VIAL IV SCH ×2 (00:32→06:35)
[2019-10-18] MEDS: 0.9% NACL WITH KCL 20 MEQ/L 1,000 ML IV SCH (02:01)
[2019-10-18] MEDS: METOCLOPRAMIDE 5 MG/ML 2 ML VIAL IVP SCH ×2 (02:13→09:26)
[2019-10-18] MEDS: SODIUM CHLORIDE 0.9% 1,000 ML IV SCH (04:16)
[2019-10-18] MEDS ORDERED: SODIUM CHLORIDE 0.9% 1,000 ML IV ONE (04:38)
[2019-10-18 04:40] VITALS: BP 118/69; PULSE 108; TEMP 98.6
[2019-10-18] MEDS ORDERED: ENOXAPARIN 40 MG/0.4 ML SYRINGE SQ SCH ×2 (05:00→09:00)
[2019-10-18 06:28] LABS: Basophils % (A) 0 %; Eosinophils % (A) 0 %; HCT 40.7 % (39.0-53.0); HGB 13.5 gm/dL (13.0-17.5); Lymphocytes # (A) 0.7 k/uL (1.0-4.8); Lymphocytes % (A) 6 %; MCH 30.3 pg (25.0-35.0); MCHC 33.2 g/dL (31.0-37.0); MCV 91.3 fL (80.0-100.0); Mean Platelet Volume 7.5; Monocytes # (A) 0.3 k/uL (0-1.0); Monocytes % (A) 2 %; Neutrophils # (A) 10.9 k/uL (1.3-7.7); Neutrophils % (A) 92 %; Platelet Count 307 k/uL (150-450); RBC 4.46 m/uL (4.30-5.90); RDW 12.4 % (11.5-15.5); WBC 11.9 k/uL (3.8-10.6)
[2019-10-18 06:41] LABS: African American GFR (CKD) >90 (>60 ml/min/1.73 sqM); Anion Gap 8 mmol/L; Blood Urea Nitrogen 12 mg/dL (9-20); Calcium 8.6 mg/dL (8.4-10.2); Carbon Dioxide 24 mmol/L (22-30); Chloride 106 mmol/L (98-107); Magnesium 1.8 mg/dL (1.6-2.3); Non-African American GFR(CKD) >90 (>60 ml/min/1.73 sqM); Phosphorus 3.4 mg/dL (2.5-4.5); Potassium 3.9 mmol/L (3.5-5.1); Sodium 138 mmol/L (137-145)
[2019-10-18] MEDS ORDERED: 1: MVI, ADULT NO.4 WITH VIT K 10 ML, THIAMINE 100 MG, FOLIC ACID 1 MG, POTASSIUM CHLORID IV SCH ×6 (08:00)
[2019-10-18] MEDS: ALBUTEROL NEBULIZED 2.5 MG/3 ML INHALATION SCH (08:09)
[2019-10-18] MEDS ORDERED: TAMSULOSIN 0.4 MG CAP.ER.24H PO SCH (08:30)
[2019-10-18] MEDS ORDERED: VALSARTAN 160 MG TAB PO SCH (09:00)
[2019-10-18] MEDS ORDERED: HYDROCHLOROTHIAZIDE 25 MG TAB PO SCH (09:00)
[2019-10-18] MEDS ORDERED: amLODIPine 10 MG TAB PO SCH (09:00)
[2019-10-18] MEDS ORDERED: PANTOPRAZOLE 40 MG/10 ML VIAL IVP SCH (09:00)
--- NOTE | 2019-10-18 09:00 | P.DS ---
Providers Date of admission: 10/18/19 04:19 Expected date of discharge: 10/18/19 Attending physician: Marily Bain Consults: 10/18/19 08:07 Consult Physician Routine Consulting Provider: Nathan Ortez Consult Reason/Comments: Medical management Do you want consulting provider notified?: Yes Primary care physician: Nathan Ortez - Discharge Diagnosis(es) (1) Paraesophageal hernia with obstruction but no gangrene Status: Acute (2) Mchugh esophagus Status: Acute (3) Obesity (BMI 30.0-34.9) Status: Acute (4) GERD (gastroesophageal reflux disease) Status: Chronic (5) Hypertensive heart disease Status: Acute (6) Dehydration Status: Acute (7) Hypotension Status: Acute Hospital Course: POSTOPERATIVE DIAGNOSES: 1. Paraesophageal hiatal hernia, midline, recurrent 2. Gastroesophageal reflux disease 3. Hypertensive heart disease 4. Ineffective esophageal dysmotility 5. Obesity due to excess calories, BMI 31.1 6. Mchugh's esophagus 7. Dehydration with hypotension 8. Peritoneal adhesions, left upper quadrant omentum to abdominal wall and perigastric COURSE: The patient is a 54 year old male who presented with recurrent hiatal hernia. Patient presents with recurrent diaphragmatic hiatal hernia. He is status post takedown of fundoplication including repair of recurrent incarcerated hiatal hernia. He completed an esophagram without leak. Mild obstruction was noted. Clinically he is asymptomatic and tolerating liquids. He denies reflux. He denies chest pain. His white catheter was removed. He is yet to void. Patient stable for discharge after voiding. Two-week liquid diet reviewed. Pertinent Studies: Esophagram without leak or moderate obstruction Procedures: OPERATION: 1. Robotic-assisted da Ernesto Xi laparoscopic takedown of Vahid fundoplasty with extensive lysis of adhesions over 1.5 hour for perigastric adhesions 2. Robotic-assisted da Ernesto Xi laparoscopic reduction and repair of recurrent incarcerated paraesophageal hiatal hernia, 5 x 4 cm, with [place] Biopatch A 8 x 8 cm. 3. Intraoperative esophagogastroduodenoscopy 4. Placement of 56-Danish bougie for pre-existing esophageal stricture Patient Condition at Discharge: Stable Plan - Discharge Summary Discharge Rx Participant: Yes New Discharge Prescriptions: New Bisacodyl [Dulcolax] 5 mg PO DAILY PRN #10 tablet.dr PRN Reason: Constipation Simethicone 40 mg/0.6 ml Drops [Mylicon Drops] 80 mg PO PCHS PRN #30 ml PRN Reason: Gas Omeprazole 40 mg PO DAILY #30 capsule. Ondansetron Odt [Zofran Odt] 4 mg PO Q8HR PRN #9 tab PRN Reason: Nausea Tamsulosin [Flomax] 0.4 mg PO DAILY #5 cap.er.24h Acetaminophen Oral Susp [Tylenol Oral Susp] 500 mg PO Q4-6H PRN #400 ml PRN Reason: Pain Continue Amlodipine/Valsartan/Hcthiazid [Exforge Hct 10-320-25 mg Tab] 1 tab PO DAILY Omeprazole [PriLOSEC] 40 mg PO DAILY Discharge Medication List Amlodipine/Valsartan/Hcthiazid [Exforge Hct 10-320-25 mg Tab] 1 tab PO DAILY 03/25/15 [History] Omeprazole [PriLOSEC] 40 mg PO DAILY 07/17/19 [History] Acetaminophen Oral Susp [Tylenol Oral Susp] 500 mg PO Q4-6H PRN #400 ml 10/18/19 [Rx] Bisacodyl [Dulcolax] 5 mg PO DAILY PRN #10 tablet. 10/18/19 [Rx] Omeprazole 40 mg PO DAILY #30 capsule. 10/18/19 [Rx] Ondansetron Odt [Zofran Odt] 4 mg PO Q8HR PRN #9 tab 10/18/19 [Rx] Simethicone 40 mg/0.6 ml Drops [Mylicon Drops] 80 mg PO PCHS PRN #30 ml 10/18/19 [Rx] Tamsulosin [Flomax] 0.4 mg PO DAILY #5 cap.er.24h 10/18/19 [Rx] Follow up Appointment(s)/Referral(s): Marily Bain MD [STAFF PHYSICIAN] - 10/28/19 (Please call to confirm time) Patient Instructions/Handouts: Laparoscopic Hiatal Hernia Repair (DC) Activity/Diet/Wound Care/Special Instructions: No lifting for 4 pounds in 4 weeks, until Nov 17February shower. No bathtub soaks for 2 weeks until Oct 31. Full liquid diet until October 31 Use Tylenol scheduled for the next 24-48 hours for best pain relief. Use ice along incisions for the today to prevent swelling. Discharge Disposition: HOME SELF-CARE
--- NOTE | 2019-10-18 09:28 | FL ---
SINGLE CONTRAST ESOPHAGRAM: CLINICAL HISTORY: 54-year-old male reports prior hiatal hernia repair 5 years ago and reports mesh f ailure now with repair. TECHNIQUE: Single contrast exam performed with 40 ml Isovue-370 contrast. Total fluoroscopy time: 1 minute 15 seconds Total images: 23 FINDINGS: The patient swallowed oral contrast without difficulty or delay. Esophageal peristalsis and motility are within normal limits. Oral contrast post within the distal esophagus with a intermittent recurr ent episodes of intraesophageal reflux. Intermittent passage of contrast across the GE junction into the stomach. Mild to moderate overall delay. There is no evidence of contrast extravasation to sugges t leak. No hiatal hernia seen. Mild free air is located below the right hemidiaphragm. IMPRESSION: Status post hiatal hernia repair. There is mild to moderate relative obstruction at the GE junction l ikely secondary to postsurgical swelling. No evidence for leak. Mild postsurgical free air on the rig ht.
[2019-10-19] MEDS ORDERED: BISACODYL 5 MG TABLET.DR PO PRN (08:00)
== END 2019-10-18 10:46 | disposition home or self-care (01) ==
LOC: ORWHC2ENDO 11:46 → EDSTATUS 12:15 → 4SSUR 17:44 → ORWHC2ENDO 10-18 04:37
PROVIDERS: ADMIT Surgery Plastic and Reconstructive Surgery; ATTEND Surgery Plastic and Reconstructive Surgery
DX: K44.0 Diaphragmatic hernia with obstruction, without gangrene (principal); K66.0 Peritoneal adhesions (postprocedural) (postinfection); T81.89XA Other complications of procedures, not elsewhere classified, initial encounter; K21.9 Gastro-esophageal reflux disease without esophagitis; K22.70 Barrett's esophagus without dysplasia; R13.10 Dysphagia, unspecified; I95.89 Other hypotension; E86.0 Dehydration; E66.9 Obesity, unspecified; Z68.31 Body mass index [BMI] 31.0-31.9, adult; I11.9 Hypertensive heart disease without heart failure; R16.0 Hepatomegaly, not elsewhere classified; M19.90 Unspecified osteoarthritis, unspecified site; N42.9 Disorder of prostate, unspecified; Z80.3 Family history of malignant neoplasm of breast; Z79.899 Other long term (current) drug therapy; Z88.5 Allergy status to narcotic agent
CPT/HCPCS: 43282; 43450; 49329; S2900; 64488; 74210; 80051; 80053; 82310; 82565; 83735; 84100; 84484; 84520; 85025; 93005; 94640

== ENCOUNTER → 2023-03-14 | Outpatient (CLI) | payer OTHER ==
--- NOTE | 2023-03-15 06:19 | MR ---
EXAMINATION TYPE: MR knee RT wo con DATE OF EXAM: 03/14/2023 COMPARISON: Outside right knee x-ray March 07, 2023 HISTORY: Right knee pain and swelling for 1 year. TECHNIQUE: Multiplanar, multisequence images of the knee is performed without IV contrast. FINDINGS: MEDIAL MENISCUS: Medial bulging medial meniscus on coronal images There is irregular linear signal po sterior horn extending to inferior articular surface. LATERAL MENISCUS: Anterior and posterior horns are intact without tear. CRUCIATE LIGAMENTS: The anterior and posterior cruciate ligaments are intact and unremarkable. COLLATERAL LIGAMENTS: The medial collateral ligament and lateral collateral ligament complex are inta ct and unremarkable. EXTENSOR MECHANISM: Visualized quadriceps and patellar tendons are intact. EFFUSION: No significant suprapatellar joint effusion. POPLITEAL CYST: No popliteal/marin cyst. TRICOMPARTMENT SPACES: Mild to moderate tricompartment joint space loss with mild spurring. CARTILAGE: Early cartilaginous loss medial tibiofemoral compartment. BONE MARROW SIGNAL: Focus of increased T2 signal involving the medial aspect of the medial tibial radha teau over roughly 1.4 cm area. OTHER: No additional significant abnormality is appreciated. IMPRESSION: 1. Full-thickness tear posterior horn medial meniscus. 2. Mild/moderate tricompartment degenerative changes as detailed above. 3. Small focus of osseous contusion and/or abnormal bone marrow edema medial aspect medial tibial radha teau.
== END | disposition home or self-care (01) ==
LOC: RADMRIMAIN 20:15
PROVIDERS: ATTEND Orthopaedic Surgery
DX: M17.11 Unilateral primary osteoarthritis, right knee (principal); S83.241A Other tear of medial meniscus, current injury, right knee, initial encounter; S80.01XA Contusion of right knee, initial encounter; X58.XXXA Exposure to other specified factors, initial encounter

== ENCOUNTER 2023-04-09 09:23 | Emergency (ER) | payer OTHER ==
[2023-04-09 09:28] VITALS: TEMP 98.3
[2023-04-09 10:30] LABS: Basophils % (A) 0 %; Eosinophils # (A) 0.2 k/uL (0-0.7); Eosinophils % (A) 2 %; HGB 14.8 gm/dL (13.0-17.5); Lymphocytes # (A) 1.8 k/uL (1.0-4.8); Lymphocytes % (A) 22 %; MCH 31.3 pg (25.0-35.0); MCHC 34.4 g/dL (31.0-37.0); MCV 90.9 fL (80.0-100.0); Mean Platelet Volume 7.7; Monocytes # (A) 0.4 k/uL (0-1.0); Monocytes % (A) 5 %; Neutrophils # (A) 5.4 k/uL (1.3-7.7); Neutrophils % (A) 68 %; Platelet Count 359 k/uL (150-450); RBC 4.73 m/uL (4.30-5.90); RDW 12.6 % (11.5-15.5)
--- NOTE | 2023-04-09 10:35 | ED ---
General Adult HPI - General Chief complaint: Chest Pain Stated complaint: chest pain, sob, hypertension Time Seen by Provider: 04/09/23 09:40 Source: patient Mode of arrival: ambulatory Limitations: no limitations - History of Present Illness Initial comments: Dictation was produced using [employer] dictation software. please excuse any grammatical, word or spelling errors. Chief Complaint: 57-year-old male presents emergency department for chest pain or shortness of breath History of Present Illness: Patient is a 49-year-old male who has no significant past medical history. Patient has no history of cardiac or pulmonary disease. States that her last several days been having dyspnea. States that it feels like it's worse when he lies flat triangle bed. Patient today started to have left anterior chest pain. States sharp. Nonradiating. Did have some bouts of diaphoresis. No coughing. Denies any lower shoulder symptoms. No history of blood clots. The ROS documented in this emergency department record has been reviewed and confirmed by me. Those systems with pertinent positive or negative responses have been documented in the HPI. All other systems are other negative and/or noncontributory. - Related Data Home Medications Medication Instructions Recorded Confirmed Esomeprazole Magnesium [NexIUM] 40 mg PO DAILY 04/09/23 04/09/23 Losartan/Hydrochlorothiazide 1 tab PO DAILY 04/09/23 04/09/23 [Hyzaar 100-12.5 Tablet] Multivitamins, Thera [Multivitamin 1 tab PO DAILY 04/09/23 04/09/23 (formulary)] Allergies Allergy/AdvReac Type Severity Reaction Status Date / Time hydrocodone bitartrate AdvReac Hallucinati Verified 04/09/23 10:09 [From [facility]] ons Review of Systems ROS Statement: Those systems with pertinent positive or pertinent negative responses have been documented in the HPI. ROS Other: All systems not noted in ROS Statement are negative. Past Medical History Past Medical History: GERD/Reflux, Hypertension, Osteoarthritis (OA), Prostate Disorder Additional Past Medical History / Comment(s): HIATAL HERNIA History of Any Multi-Drug Resistant Organisms: None Reported Past Surgical History: Orthopedic Surgery Additional Past Surgical History / Comment(s): LEFT ROTATOR CUFF Past Anesthesia/Blood Transfusion Reactions: No Reported Reaction Past Psychological History: No Psychological Hx Reported Smoking Status: Never smoker Past Alcohol Use History: Occasional Past Drug Use History: None Reported - Past Family History Mother Family Medical History: No Reported History Sister(s) Family Medical History: Cancer Additional Family Medical History / Comment(s): BREAST General Exam - General Exam Comments Initial Comments: PHYSICAL EXAM: General Impression: Alert and oriented x3, not in acute distress HEENT: Normocephalic atraumatic, extra-ocular movements intact, pupils equal and reactive to light bilaterally, mucous membranes moist. Cardiovascular: Heart regular rate and rhythm Chest: Able to complete full sentences, no retractions, no tachypnea Abdomen: abdomen soft, non-tender, non-distended, no organomegaly Musculoskeletal: Pulses present and equal in all extremities, no peripheral edema Motor: no focal deficits noted Neurological: CN II-XII grossly intact, no focal motor or sensory deficits noted Skin: Intact with no visualized rashes Psych: Normal affect and mood Limitations: no limitations Course Vital Signs 04/09/23 04/09/23 09:26 10:28 Temperature 98.3 F Pulse Rate 85 81 Respiratory 20 18 Rate Blood Pressure 172/100 167/98 O2 Sat by Pulse 99 97 Oximetry EKG Findings - EKG Comments: EKG Findings:: My EKG interpretation: Ventricular rate 79, sinus rhythm,. 152, QRS 95, QTc 389. No IL prolongation, no QTC prolongation, no ST or T-wave changes noted. Overall, this EKG is unremarkable Medical Decision Making - Medical Decision Making Was pt. sent in by a medical professional or institution (, PA, HYDRAULIC LIFT OPERATOR, urgent care, hospital, or [facility]...) When possible be specific @ -No Did you speak to anyone other than the patient for history (EMS, parent, family, police, friend...)? What history was obtained from this source @ - reports patient having chest pain Did you review nursing and triage notes (agree or disagree)? Why? @ -I reviewed and agree with nursing and triage notes Were old charts reviewed (outside hosp., previous admission, EMS record, old EKG, old radiological studies, urgent care reports/EKG's, [facility] records)? Report findings @ -No old charts were reviewed Differential Diagnosis (chest pain, altered mental status, abdominal pain women, abdominal pain men, vaginal bleeding, musculoskeletal, weakness, fever, dyspnea, syncope, headache, dizziness, GI bleed, back pain, seizure, CVA, palpatations, mental health)? @ -Differential Chest Pain: Stable Angina, Unstable Angina, STEMI, NSTEMI Aortic Dissection, Pneumothorax, Musculoskeletal, Esophageal Spasm GERD, Cholecystitis, Pancreatitis, Zoster, this is not meant to be an all-inclusive list. EKG interpreted by me (3pts min.). @ - above X-rays interpreted by me (1pt min.). @ -Chest x-ray is nonacute CT interpreted by me (1pt min.). @ -None done U/S interpreted by me (1pt. min.). @ -None done What testing was considered but not performed or refused? (CT, X-rays, U/S, labs)? Why? @ -None What meds were considered but not given or refused? Why? @ -None Did you discuss the management of the patient with other professionals (professionals i.e. , PA, HYDRAULIC LIFT OPERATOR, lab, RT, psych nurse, oncology social work, pellet preparation operator, teacher, search and rescue officer, family service caseworker)? Give summary @ -No Was smoking cessation discussed for >3mins.? @ -No Was critical care preformed (if so, how long)? @ -No Were there social determinants of health that impacted care today? How? (Homelessness, low income, unemployed, alcoholism, drug addiction, transportation, low edu. Level, literacy, decrease access to med. care, [facility], rehab)? @ -No Was there de-escalation of care discussed even if they declined (Discuss DNR or withdrawal of care, Hospice)? DNR status @ -No What co-morbidities impacted this encounter? (DM, HTN, Smoking, COPD, CAD, Cancer, CVA, ARF, Chemo, Hep., AIDS, mental health diagnosis, sleep apnea, mo rbid obesity)? @ -None Was patient admitted / discharged? Hospital course, mention meds given and route, prescriptions, significant lab abnormalities, going to OR and other pertinent info. @ -57-year-old male presents emergency department with atypical chest pain with typical features. Vital signs upon arrival are within acceptable limits. Laboratory evaluation obtained. Labs are unremarkable. Troponin is negative. Chest x-ray is nonacute. Patient does have some risk factors. Recommended the patient be admitted for cardiac observation to rule out acute coronary syndrome. He would prefer to be discharge. Is strongly advised to follow primary care doctor. He is also given referral to cardiology. Strict return precautions di scussed. Patient given aspirin. Patient be discharged. Undiagnosed new problem with uncertain prognosis? @ -No Drug Therapy requiring intensive monitoring for toxicity (Heparin, Nitro, Insulin, Cardizem)? @ -No Were any procedures done? @ -No Diagnosis/symptom? Acute, or Chronic, or Acute on Chronic? Uncomplicated (without systemic symptoms) or Complicated (systemic symptoms)? @ -1. Chest pain Side effects of treatment? @ -No Exacerbation, Progression, or Severe Exacerbation? @ -No Poses a threat to life or bodily function? How? (Chest pain, [place], [place], pneumonia, PE, COPD, DKA, ARF, appy, cholecystitis, CVA, Diverticulitis, Homicidal, Suicidal, threat to staff... and all critical care pts) @ -No - Lab Data Result diagrams: 04/09/23 10:24 04/09/23 10:24 Lab Results 04/09/23 04/09/23 04/09/23 Range/Units 10:24 10:24 10:24 WBC 8.0 (3.8-10.6) k/uL RBC 4.73 (4.30-5.90) m/uL Hgb 14.8 (13.0-17.5) gm/dL Hct 43.0 (39.0-53.0) % MCV 90.9 (80.0-100.0) fL MCH 31.3 (25.0-35.0) pg MCHC 34.4 (31.0-37.0) g/dL RDW 12.6 (11.5-15.5) % Plt Count 359 (150-450) k/uL MPV 7.7 Neutrophils % 68 % Lymphocytes % 22 % Monocytes % 5 % Eosinophils % 2 % Basophils % 0 % Neutrophils # 5.4 (1.3-7.7) k/uL Lymphocytes # 1.8 (1.0-4.8) k/uL Monocytes # 0.4 (0-1.0) k/uL Eosinophils # 0.2 (0-0.7) k/uL Basophils # 0.0 (0-0.2) k/uL PT 10.2 (9.0-12.0) sec INR 1.0 (<1.2) APTT 25.4 (22.0-30.0) sec Sodium 140 (137-145) mmol/L Potassium 4.0 (3.5-5.1) mmol/L Chloride 106 (98-107) mmol/L Carbon Dioxide 25 (22-30) mmol/L Anion Gap 9 mmol/L BUN 20 (9-20) mg/dL Creatinine 0.77 (0.66-1.25) mg/dL Est GFR (CKD-EPI)AfAm >90 (>60 ml/min/1.73 sqM) Est GFR (CKD-EPI)NonAf >90 (>60 ml/min/1.73 sqM) Glucose 93 (74-99) mg/dL Calcium 8.8 (8.4-10.2) mg/dL Magnesium 2.0 (1.6-2.3) mg/dL Total Bilirubin 0.5 (0.2-1.3) mg/dL AST 26 (17-59) U/L ALT 24 (4-49) U/L Alkaline Phosphatase 75 (38-126) U/L Troponin I (0.000-0.034) ng/mL NT-Pro-B Natriuret Pep pg/mL Total Protein 7.7 (6.3-8.2) g/dL Albumin 4.2 (3.5-5.0) g/dL 04/09/23 04/09/23 Range/Units 10:24 10:24 WBC (3.8-10.6) k/uL RBC (4.30-5.90) m/uL Hgb (13.0-17.5) gm/dL Hct (39.0-53.0) % MCV (80.0-100.0) fL MCH (25.0-35.0) pg MCHC (31.0-37.0) g/dL RDW (11.5-15.5) % Plt Count (150-450) k/uL MPV Neutrophils % % Lymphocytes % % Monocytes % % Eosinophils % % Basophils % % Neutrophils # (1.3-7.7) k/uL Lymphocytes # (1.0-4.8) k/uL Monocytes # (0-1.0) k/uL Eosinophils # (0-0.7) k/uL Basophils # (0-0.2) k/uL PT (9.0-12.0) sec INR (<1.2) APTT (22.0-30.0) sec Sodium (137-145) mmol/L Potassium (3.5-5.1) mmol/L Chloride (98-107) mmol/L Carbon Dioxide (22-30) mmol/L Anion Gap mmol/L BUN (9-20) mg/dL Creatinine (0.66-1.25) mg/dL Est GFR (CKD-EPI)AfAm (>60 ml/min/1.73 sqM) Est GFR (CKD-EPI)NonAf (>60 ml/min/1.73 sqM) Glucose (74-99) mg/dL Calcium (8.4-10.2) mg/dL Magnesium (1.6-2.3) mg/dL Total Bilirubin (0.2-1.3) mg/dL AST (17-59) U/L ALT (4-49) U/L Alkaline Phosphatase (38-126) U/L Troponin I <0.012 (0.000-0.034) ng/mL NT-Pro-B Natriuret Pep <20 pg/mL Total Protein (6.3-8.2) g/dL Albumin (3.5-5.0) g/dL Disposition Clinical Impression: Chest pain Disposition: HOME SELF-CARE Condition: Fair Instructions (If sedation given, give patient instructions): Chest Pain (ED) Is patient prescribed a controlled substance at d/c from ED?: No Referrals: Nathan Ortez MD [Primary Care Provider] - 1-2 days Luigi Germain DO [STAFF PHYSICIAN] - 1-2 days Time of Disposition: 12:00
[2023-04-09 10:44] LABS: ALT 24 U/L (4-49); AST 26 U/L (17-59); African American GFR (CKD) >90 (>60 ml/min/1.73 sqM); Albumin 4.2 g/dL (3.5-5.0); Alkaline Phosphatase 75 U/L (38-126); Anion Gap 9 mmol/L; Blood Urea Nitrogen 20 mg/dL (9-20); Calcium 8.8 mg/dL (8.4-10.2); Carbon Dioxide 25 mmol/L (22-30); Chloride 106 mmol/L (98-107); Glucose 93 mg/dL (74-99); Non-African American GFR(CKD) >90 (>60 ml/min/1.73 sqM); Sodium 140 mmol/L (137-145); Total Bilirubin 0.5 mg/dL (0.2-1.3); Total Protein 7.7 g/dL (6.3-8.2)
[2023-04-09 10:54] LABS: Partial Thromboplastin Time 25.4 sec (22.0-30.0); Prothrombin Time 10.2 sec (9.0-12.0)
--- NOTE | 2023-04-09 11:01 | XR ---
EXAMINATION TYPE: XR chest 2V DATE OF EXAM: 04/09/2023 10:48 AM COMPARISON: Chest radiographs from 04/12/2019 TECHNIQUE: XR chest 2V Frontal and lateral views of the chest. CLINICAL INDICATION:Male, 57 years old with history of Chest Pain; FINDINGS: Lungs/Pleura: There is no evidence of pleural effusion, focal consolidation, or pneumothorax. Pulmonary vascularity: Unremarkable. Heart/mediastinum: Cardiomediastinal silhouette is unremarkable. Musculoskeletal: Multiple level degenerative disc disease changes seen throughout the spine. IMPRESSION: No acute cardiopulmonary disease/process.
[2023-04-09 12:28] VITALS: BP 167/98; PULSE 81; RESP 18
[2023-04-09] MEDS ORDERED: ASPIRIN 81 MG PO STA (12:47)
== END 2023-04-09 13:17 | disposition home or self-care (01) ==
LOC: EC 09:23
DX: R07.89 Other chest pain (principal); K21.9 Gastro-esophageal reflux disease without esophagitis; I10 Essential (primary) hypertension; M19.90 Unspecified osteoarthritis, unspecified site; Z79.899 Other long term (current) drug therapy; Z79.1 Long term (current) use of non-steroidal anti-inflammatories (NSAID); Z88.6 Allergy status to analgesic agent
CPT/HCPCS: 36415; 71046; 80053; 83735; 83880; 84484; 85025; 85610; 85730; 93005; 99285

== ENCOUNTER → 2023-04-09 | Outpatient (CLI) | payer OTHER ==
[2023-04-09 16:39] LABS: Anion Gap 10.7 mmol/L (4.00-12.00); Basophils # (A) 0.04 X 10*3/uL (0.00-0.10); Basophils % (A) 0.5 %; Carbon Dioxide 26.3 mmol/L (21.6-31.8); Eosinophils # (A) 0.16 X 10*3/uL (0.04-0.35); HCT 43.5 % (39.6-50.0); HGB 14.7 d/dL (12.0-15.0); Lymphocytes # (A) 1.75 X 10*3/uL (0.90-5.00); Lymphocytes % (A) 22.2 %; MCH 31.5 pg (27.0-32.0); MCHC 33.8 d/dL (32.0-37.0); MCV 93.3 FL (80.0-97.0); Mean Platelet Volume 10.1 FL (9.5-12.2); Monocytes # (A) 0.56 X 10*3/uL (0.20-1.00); Monocytes % (A) 7.1 %; NRBC Per 100 WBC 0 X 10*3/uL (0.00-0.01); Neutrophils # (A) 5.37 X 10*3/uL (1.80-7.70); Neutrophils % (A) 67.9 %; Platelet Count 371 X 10*3/uL (140-440); Potassium 4.3 mmol/L (3.5-5.5); RBC 4.66 X 10*6/uL (4.40-5.60); RDW 12.3 % (11.5-14.5)
== END | disposition home or self-care (01) ==
LOC: LABPAT 08:36
PROVIDERS: ATTEND Orthopaedic Surgery
DX: Z01.818 Encounter for other preprocedural examination (principal); M23.91 Unspecified internal derangement of right knee; R94.31 Abnormal electrocardiogram [ECG] [EKG]
CPT/HCPCS: 36415; 80051; 85025; 93005

== ENCOUNTER → 2023-04-11 | Outpatient (CLI) | payer OTHER ==
[2023-04-11 17:02] LABS: Chol/HDL Ratio 2.73 Ratio; LDL Cholesterol,Calculated 54.5 mg/dL (0.0-131.0); T4, Free (Free Thyroxine) 1.46 ng/dL (0.80-1.80)
== END | disposition home or self-care (01) ==
LOC: LABWHC1 11:21
PROVIDERS: ATTEND Internal Medicine Clinical Cardiac Electrophysiology
DX: I10 Essential (primary) hypertension (principal); E11.9 Type 2 diabetes mellitus without complications; R06.02 Shortness of breath
CPT/HCPCS: 36415; 80061; 83036; 84439; 84443

== ENCOUNTER 2023-04-25 09:47 | Day surgery (SDC) | payer OTHER ==
--- NOTE | 2023-04-24 12:06 | HP ---
HISTORY AND PHYSICAL DATE OF SURGERY: 04/25/2023. HISTORY OF PRESENT ILLNESS: Benjamin Sánchez is a 57-year-old patient seen with progressive right knee pain. We discussed options for treatment. He elected to proceed with right knee arthroscopy. Consent regarding the procedure was obtained. PAST MEDICAL HISTORY: Hypertension. PAST SURGICAL HISTORY: Right arthroscopic rotator cuff repair. DAILY MEDICATIONS: 1. Omeprazole. 2. Losartan. 3. Aleve. ALLERGIES: None. SOCIAL HISTORY: Denies tobacco use. PHYSICAL EVALUATION OF THE RIGHT KNEE: Range of motion is 0 to 125 degrees. There is a mild effusion present. Tenderness, medial joint line. Positive medial Leon's. Ligaments stable. Hip rotation without pain. Distal neurovascular exam is intact. RADIOGRAPHS: Right knee radiographs revealed mild medial compartment osteoarthritis. MRI of right knee revealed a medial meniscal tear. IMPRESSION: 1. Internal derangement of right knee with medial meniscal tear. 2. Hypertension. 3. Gastroesophageal reflux disease. PLAN: Right knee arthroscopy with partial medial meniscectomy and debridement. MMODL / IJN: [id number] /
[~2023-04-25 09:47] MED LIST changes: -ACETAMINOPHEN TAB 500 MG TAB PO STA; -CHLORHEXIDINE GLUCONATE 15 ML CUP MUCOUS MEM ONE; -DEXAMETHASONE SOD PHOSPHATE 10 MG/ML 1 ML VIAL IV ONE; +DEXAMETHASONE SOD PHOSPHATE 4 MG/ML 1 ML VIAL IV ONE; -GABAPENTIN 300 MG CAP PO STA; -HEPARIN SODIUM,PORCINE 5,000 UNIT/ML 1 ML VIAL SQ ONE; +LIDOCAINE 1% (10MG/ML) FOR IV START INTRADERMA PRN; -LIDOCAINE 1% 20 ML VIAL (10MG/ML) FOR IV START INTRADERMA PRN; -PANTOPRAZOLE 40 MG/10 ML VIAL IV STA; -SCOPOLAMINE 1.5MG/72HR PATCH TRANSDERM ONE; -TAMSULOSIN 0.4 MG CAP.ER.24H PO STA; +ceFAZolin 3 GM in SODIUM CHLORIDE 0.9% 100 ML IVPB PRN
[2023-04-25 10:24] VITALS: RESP 16; TEMP 97.6
[2023-04-25] MEDS ORDERED: PROPOFOL 10 MG/ML 20 ML VIAL IV ONE (11:12)
[2023-04-25] MEDS ORDERED: fentaNYL (PF) 50 MCG/ML 2 ML AMP ONE (11:12)
[2023-04-25] MEDS ORDERED: MIDAZOLAM 2 MG/2 ML VIAL ONE (11:12)
[2023-04-25] MEDS ORDERED: HYDROmorphone (PF) 1 MG/ML ONE (11:12)
[2023-04-25] MEDS ORDERED: LIDOCAINE 2% INJ 20 MG/ML (2 ML VIAL) ONE (11:12)
[2023-04-25] MEDS ORDERED: SUCCINYLCHOLINE CHLORIDE 200 MG/10 ML VIAL IV ONE (11:12)
[2023-04-25] MEDS ORDERED: BUPIVACAINE (PF) 0.25% 30 ML VIAL SQ ONE (11:15)
--- NOTE | 2023-04-25 12:07 | P.OP ---
Date of Procedure: 04/25/23 Preoperative Diagnosis: Internal derangement right knee Postoperative Diagnosis: 1. Tear medial and lateral meniscus right knee 2. Grade 4 chondromalacia medial femoral condyle right knee 3. Reactive synovitis medial, lateral and suprapatellar compartments right knee Procedure(s) Performed: 1. Arthroscopic partial medial and lateral meniscectomy right knee 2. Arthroscopic microfracture medial femoral condyle right knee 3. Arthroscopic partial synovectomy medial, lateral and suprapatellar compartments right knee Anesthesia: MRINAA, local Surgeon: Nader Odell Estimated Blood Loss (ml): 5 Pathology: none sent Condition: stable Disposition: PACU Indications for Procedure: 57-year-old patient seen with progressive right knee pain. After treatment options were discussed with him, he elected to proceed with arthroscopy. Operative Findings: See description of procedure Description of Procedure: Patient was taken to the operative suite. Patient underwent a general anesthetic by the department of anesthesia. Patient was given preoperative antibiotics. The right lower extremity was placed in a well-padded arthroscopic leg swann. The right leg was prepped and draped in the normal sterile orthopedic fashion. A lateral parapatellar and suprapatellar incision was made. Trochars were inserted. Arthroscopy was initiated. Suprapatellar pouch revealed diffuse thick reactive synovitis. The patellofemoral joint appeared to articulate congruently. There was grade 1/2 chondromalacia patella with no osteochondral tears. The scope was guided into the medial gutter. No loose bodies or plica were identified. The scope was then guided into the medial compartment. A medial parapatellar incision was made. Trocar inserted followed by probe. There was a large complex tear involving the posterior horn of the medial meniscus extending just into the midbody area. There was area of grade 3/4 chondromalacia along the medial tibial plateau as well as areas of grade 3/4 chondral malacia along the medial femoral condyle with some osteochondral flap tears. There was some thick reactive synovitis anteriorly. I performed a partial medial meniscectomy getting down to stable meniscal tissue. I performed a chondroplasty of the medial femoral condyle getting down to stable osteochondral tissue. I performed a partial synovectomy decompressing the thick reactive synovitis anteriorly. I did note a tear grade 4 chondromalacia along the anterior aspect medial femoral condyle measuring about 1 cm in diameter. I introduced a microfracture awl and performed a microfracture to that area penetrating the bone with resultant bleeding at the microfracture site. The residual meniscus was probed and was noted to be stable. There was good decompression of the synovitis. The residual osteochondral surface was stable. Scope and probe were then guided into the intercondylar notch. Cruciates were identified, probed and found to be stable. The scope and probe were then guided into lateral compartment. There was a radial tear mid body lateral meniscus. There were grade 1/2 chondromalacia changes on the weightbearing surface lateral femoral condyle without significant osteochondral tears. There was some thick reactive synovitis anteriorly. I performed a partial lateral meniscectomy getting down to stable meniscal tissue. I performed a partial synovectomy decompressing the thick reactive synovitis. The residual meniscus was probed and was found to be stable. There was good decompression of the synovitis. The scope was in guided back into the suprapatellar compartment. I introduced a motorized shaver into the suprapatellar compartment. I debrided some piecemeal fragments of meniscus that I encountered. I performed a partial synovectomy. The shaver was now removed. There appeared be good decompression of the synovitis. I now took one more look around the entire knee, no residual debris. Instruments were now removed from the joint. The joint was infiltrated with .25% Marcaine. Steri-Strips were applied to the portal sites. Sterile dressings were applied. The patient was placed into a ELIE hose. No tourniquet was utilized. The patient was awakened, transferred to a bed and taken to recovery stable satisfactory condition.
[2023-04-25 12:50] VITALS: PULSE 78
[2023-04-25 13:04] VITALS: BP 131/86
== END 2023-04-25 13:37 | disposition home or self-care (01) ==
LOC: OR 09:47
PROVIDERS: ATTEND Orthopaedic Surgery
DX: S83.231A Complex tear of medial meniscus, current injury, right knee, initial encounter (principal); S83.281A Other tear of lateral meniscus, current injury, right knee, initial encounter; M94.261 Chondromalacia, right knee; M65.861 Other synovitis and tenosynovitis, right lower leg; M17.11 Unilateral primary osteoarthritis, right knee; X58.XXXA Exposure to other specified factors, initial encounter; I10 Essential (primary) hypertension; K21.9 Gastro-esophageal reflux disease without esophagitis; K44.9 Diaphragmatic hernia without obstruction or gangrene; Z79.899 Other long term (current) drug therapy; Z98.890 Other specified postprocedural states; Z88.5 Allergy status to narcotic agent
CPT/HCPCS: 29879; 29880; J2250; J0330; J1100; J0690; J2405; J3010; J1170 ×2; J2704; J2001

== ENCOUNTER → 2023-05-24 | Outpatient (CLI) | payer OTHER | END | disposition home or self-care (01) | LOC: LABWHC1 07:01 | PROVIDERS: ATTEND Orthopaedic Surgery | DX: Z01.812 Encounter for preprocedural laboratory examination (principal); Z22.322 Carrier or suspected carrier of Methicillin resistant Staphylococcus aureus; M17.12 Unilateral primary osteoarthritis, left knee | CPT/HCPCS: 87070 ==

== ENCOUNTER 2023-06-25 13:03 | Observation (INO) | payer OTHER ==
[2023-06-21 14:49] VITALS: BMI 34.7
--- NOTE | 2023-06-25 01:19 | HP ---
HISTORY AND PHYSICAL DATE OF SURGERY: 06/25/2023. Benjamin Sánchez is a 58-year-old gentleman, seen with symptomatic left knee osteoarthritis. We discussed options for treatment. He elected to proceed with left total knee arthroplasty. Consent was obtained. Preoperative clearance was provided by Dr. Nathan Ortez. PAST MEDICAL HISTORY: Hypertension, gastroesophageal reflux disease. PAST SURGICAL HISTORY: Knee arthroscopy, rotator cuff repair. DAILY MEDICATIONS: 1. Losartan. 2. Omeprazole. 3. Tylenol. 4. Aleve. ALLERGIES: None. SOCIAL HISTORY: Denies current tobacco use. PHYSICAL EVALUATION OF LEFT KNEE: Range of motion 0 to 120 degrees. There is a mild effusion present. Tenderness in medial joint line along with the medial patellar facet. Pain with patellofemoral compression. Ligaments stable. Crepitus, medial and patellofemoral compartments with range of motion. Genu varum deformity. Hip rotation without pain. Distal neurovascular exam intact. RADIOGRAPHS: Left knee radiographs revealed severe osteoarthritic changes. IMPRESSION: 1. Left knee osteoarthritis. 2. Hypertension. 3. Gastroesophageal reflux disease. PLAN: Left total knee arthroplasty. MMODL / IJN: [id number] /
[~2023-06-25 13:03] MED LIST changes: +ACETAMINOPHEN TAB 500 MG TAB PO PRN; -LACTATED RINGERS 1,000 ML IV SCH; +MELOXICAM 7.5 MG TAB PO PRN; +TRANEXAMIC 1,000 MG/100ML-NACL 1,000 MG in SALINE 1 100ML.BAG IVPB PRN
[2023-06-25] MEDS: LACTATED RINGERS 1,000 ML IV SCH (13:41)
[2023-06-25] MEDS ORDERED: MIDAZOLAM 2 MG/2 ML VIAL IVP ONE (13:57)
--- NOTE | 2023-06-25 14:25 | P.ANPRN ---
Procedure Note - Anesthesia - Nerve Block Performed Left Cora Single Date of Procedure: 06/25/23 Procedure Start Time: 13:56 Procedure Stop Time: 14:01 Indication: Acute Post-Operative Pain, Requested by Surgeon Sedation Type: Sedate with meaningful contact maintained Preparation: Sterile Prep Position: Supine Catheter: None Needle Types: Facet Needle Gauge: 21 Ultrasound used to visualize needle placement: Yes Ultrasound used to observe medication spread: Yes Injectate: 0.5% Ropivacaine (see comment for volume) (15 mls+10 mls NS+4 mgs of Decadron) Blood Aspirated: No Pain Paresthesia on Injection Noted: No Resistance on Injection: Normal Image Stored and Saved: Yes Events: Uneventful and Well Tolerated
--- NOTE | 2023-06-25 14:26 | P.ANPRN ---
Procedure Note - Anesthesia - Nerve Block Performed Left Adductor Canal Infusion Date of Procedure: 06/25/23 Procedure Start Time: 14:02 Procedure Stop Time: 14:16 Indication: Acute Post-Operative Pain, Requested by Surgeon Sedation Type: Sedate with meaningful contact maintained Preparation: Sterile Prep, Sterile Dressing Position: Supine Catheter: Indwelling Needle Types: Telma Needle Gauge: 18 Ultrasound used to visualize needle placement: Yes Ultrasound used to observe medication spread: Yes Injectate: 0.5% Ropivacaine (see comment for volume) (15 mls+10 mls NS) Blood Aspirated: No Pain Paresthesia on Injection Noted: No Resistance on Injection: Normal Image Stored and Saved: Yes Events: Uneventful and Well Tolerated
[2023-06-25] MEDS ORDERED: ROPIVACAINE 1,100 MG, SODIUM CHLORIDE 0.9% 500 ML 330 ML, EMPTY PAIN BALL 1 EACH MISCELLANE PRN ×2 (14:47)
[2023-06-25] MEDS ORDERED: KETAMINE 10 MG/ML 20 ML VIAL ONE (15:31)
[2023-06-25] MEDS ORDERED: SODIUM CHLORIDE 0.9% (PF) 10 ML VIAL ONE (15:31)
[2023-06-25] MEDS ORDERED: LIDOCAINE 2% INJ 20 MG/ML (2 ML VIAL) ONE (15:31)
[2023-06-25] MEDS ORDERED: diphenhydrAMINE 50 MG/ML 1 ML VIAL ONE (15:31)
[2023-06-25] MEDS ORDERED: PROPOFOL 10 MG/ML 20 ML VIAL IV ONE (15:31)
[2023-06-25] MEDS ORDERED: TRANEXAMIC 1,000 MG/100ML-NACL PREMIX BAG ONE (15:31)
[2023-06-25] MEDS ORDERED: DEXAMETHASONE SOD PHOSPHATE 4 MG/ML 1 ML VIAL ONE (15:31)
[2023-06-25] MEDS ORDERED: ROPIVACAINE 5 MG/ML 30 ML VIAL ONE (15:31)
[2023-06-25] MEDS ORDERED: MIDAZOLAM 2 MG/2 ML VIAL ONE (15:31)
[2023-06-25] MEDS ORDERED: MAGNESIUM HYDROXIDE 2,400 MG/30 ML CUP PO PRN (16:10)
[2023-06-25] MEDS ORDERED: ACETAMINOPHEN TAB 325 MG TAB PO PRN (16:10)
[2023-06-25] MEDS ORDERED: NALOXONE 0.4 MG/ML 1 ML VIAL IV PRN (16:10)
[2023-06-25] MEDS ORDERED: HYDROmorphone 0.5 MG/0.5 ML SYRINGE IVP PRN ×2 (16:10)
[2023-06-25] MEDS ORDERED: HYDROmorphone 1 MG/ML 1 ML SYRINGE IVP PRN (16:10)
[2023-06-25] MEDS ORDERED: ONDANSETRON 4 MG/2 ML VIAL IVP PRN (16:10)
[2023-06-25] MEDS ORDERED: Acetaminophen-Codeine 300-30mg TAB PO PRN (16:10)
[2023-06-25] MEDS ORDERED: LACTATED RINGERS 1,000 ML IV ONE ×3 (17:05→20:00)
--- NOTE | 2023-06-25 17:28 | P.OP ---
Date of Procedure: 06/25/23 Preoperative Diagnosis: Left knee osteoarthritis Postoperative Diagnosis: Left knee osteoarthritis Procedure(s) Performed: Left total knee arthroplasty Implants: 1. Depuy attune size 7 left cruciate retaining cemented femur 2. Depuy attune size 7 fixed-bearing cemented tibial baseplate 3. Depuy attune size 7 fixed-bearing cruciate retaining 7 mm polyethylene tibial insert 4. Depuy attune 38 mm all polyethylene cemented patella Anesthesia: regional (Adductor canal catheter, Ipack block), spinal Surgeon: Nader Odell Senior Drupal Developer #1: Nj Prasad Estimated Blood Loss (ml): 40 Pathology: none sent Condition: stable Disposition: PACU Indications for Procedure: 58-year-old patient who was seen with symptomatic left knee osteoarthritis. After having treatment options discussed, he elected to proceed with total knee arthroplasty. Operative Findings: See description of procedure Description of Procedure: Patient was taken to the operative suite after having an adductor canal catheter placed by the department of anesthesia. Patient underwent a spinal anesthetic by the department of anesthesia. Patient was given preoperative IV intake antibiotics and TXA. A well-padded tourniquet was placed about the left lower extremity. The lower extremity was then prepped and draped in the normal sterile orthopedic fashion. The extremity was elevated, a tourniquet was insufflated to 300. A standard anterior incision was made sharply through skin. Dissection was taken down through the subcutaneous soft tissues down to the extensor mechanism. A medial arthrotomy was performed, patella was everted and knee was flexed. There was advanced osteoarthritis noted. I introduced my distal intramedullary femoral drill. I then introduced the distal femoral cutting jig. Nj ECHEVERRIA secured the cutting jig with 2 pins. I held retractors in position while Nj ECHEVERRIA performed the distal femoral resection through the guide area we now removed her distal femoral cutting guide. We now placed our 4-in-1 femoral cutting block and positioned and it was secured with 2 pins by Nj ECHEVERRIA while I held the block in position. The distal femoral finishing was now completed. A proximal tibial cutting guide was positioned. I held the guide in the appropriate position with both hands well Fernandez ECHEVERRIA inserted stabilizing pins into the guide. Proximal tibial cut was made. We now placed a trial femoral component into position, along with an appropriate size tibial tray and insert. We now took the knee through range of motion and had full extension good flexion and good overall soft tissue balance noted. The patella was everted and stabilized with 2 towel clips held by Nj ECHEVERRIA while I performed a flush with patellar quad tendon utilizing a fresh sawblade. We templated the patella, appropriate drill holes were made. An appropriate trial patella was positioned, knee was taken through full range of motion with the patella tracking very nicely. The trial patella was removed. Drill holes were made through the femoral component. All trial components were removed after marking off the appropriate rotation of the tibia. Retractors were now positioned along the proximal tibia. An appropriate keel punch was made with the appropriate size tibial guide by myself while Nj ECHEVERRIA assisted by holding retractors. At this point appropriate size implants were chosen and opened. The joint was irrigated copiously with pulse lavage mechanical irrigation. The posterior capsule was infiltrated with local analgesic. The wound was irrigated with pulse lavage mechanical irrigation. We mixed antibiotic methylmethacrylate. We placed the knee into flexion. We placed multiple retractors assisted by Nj ECHEVERRIA to expose the proximal tibia. Once the methyl methacrylate was ready, the tibial component was cemented into place removing any excess methylmethacrylate form by both myself and Nj ECHEVERRIA. The femoral component was cemented into place removing the removing any excess methylmethacrylate performed by both myself and Nj ECHEVERRIA. We then inserted the appropriate size polyethylene tibial insert. We made sure that it was locked into position. We took the knee into full extension, and then back in a flexion making sure we had removed any excess methylmethacrylate. The patellar component was then cemented down and secured with clamp. Excess methylmethacrylate removed. We kept the knee in full extension, patellar clamp in position until methylmethacrylate had hardened. Once it had hardened the patellar clamp was removed. The knee was taken through full range of motion. The patella tracked nicely. There was good soft tissue balancing. The tourniquet was now released. Additional hemostasis was achieved via electrocautery. A second gram of TXA was given. The wound again was irrigated with pulse lavage mechanical irrigation. The extensor mechanism was repaired with Ethibond suture. We checked the repair with range of motion and it was stable. The subcutaneous soft tissues were repaired with Vicryl in layers. The skin was approximated with pernio/Dermabond. Sterile dressings w ere applied followed by loose web roll and Lui bandage. The patient was transferred to a bed, and taken to recovery in stable and satisfactory condition. Nj ECHEVERRIA assisted with this complex procedure.
--- NOTE | 2023-06-25 18:32 | XR ---
EXAMINATION TYPE: XR knee limited LT DATE OF EXAM: 06/25/2023 6:03 PM CLINICAL INDICATION:Male, 58 years old with history of Evaluation for Postop abnormality and alignmen t; [facility] COMPARISON: None. TECHNIQUE: The Left knee(s) was examined in Frontal, lateral projections. FINDINGS: Status post total knee arthroplasty changes with hardware in appropriate alignment and in tact. No evidence of fracture. Subcutaneous lucencies and lucencies within the joint consistent with surgical changes. IMPRESSION: Status post total knee arthroplasty changes with hardware intact and appropriate alignment. No fractu res identified.
[2023-06-25] MEDS: traMADol 50 MG TAB PO PRN (20:52)
[2023-06-25] MEDS ORDERED: SENNOSIDES-DOCUSATE SODIUM 1 EACH TAB PO SCH (21:00)
[2023-06-25] MEDS: ceFAZolin 3 GM in SODIUM CHLORIDE 0.9% 100 ML IVPB SCH (23:58)
[2023-06-26] MEDS ORDERED: amLODIPine 2.5 MG TAB PO SCH (00:45)
[2023-06-26] MEDS: VALSARTAN 160 MG TAB PO SCH ×2 (00:56→09:36)
[2023-06-26] MEDS: traMADol 50 MG TAB PO PRN ×2 (02:47→08:28)
[2023-06-26] MEDS: LACTATED RINGERS 1,000 ML IV SCH (06:33)
--- NOTE | 2023-06-26 07:26 | P.PN ---
Progress Note - Text Progress Note Date: 06/26/23 The patient is doing well status post total knee replacement. Pain is well con trolled by a combination of local anesthetic infusion through the adductor canal catheter and oral analgesics. There are no signs of infection around the catheter skin entry site. The local anesthetic infusion will be continued as per protocol.
[2023-06-26] MEDS ORDERED: ENOXAPARIN 30 MG/0.3 ML SYRINGE SQ SCH (08:00)
[2023-06-26] MEDS ORDERED: MULTIVITAMINS, THERA 1 EACH TAB PO SCH (09:00)
[2023-06-26] MEDS ORDERED: PANTOPRAZOLE 40 MG TABLET PO SCH (09:00)
[2023-06-26] MEDS ORDERED: ATORVASTATIN 40 MG TAB PO SCH (09:00)
[2023-06-26] MEDS: hydroCHLOROthiazide 25 MG TAB PO SCH ×2 (09:18→09:25)
--- NOTE | 2023-06-26 09:18 | P.DS ---
Providers Date of admission: 06/25/2023 Expected date of discharge: 06/26/23 Attending physician: Nader Odell Consults: 06/25/23 16:13 Consult Physician Routine Consulting Provider: Malcolm Rodgers Consult Reason/Comments: Medical Management Do you want consulting provider notified?: Yes Primary care physician: Nathan Ortez Hospital Course: Date of admission: 06/25/2023 Date of discharge: 06/26/2023 Admission diagnosis: Left knee osteoarthritis Discharge diagnosis: Same Attending physician: Dr. Odell Surgical procedures: Left total knee arthroplasty Brief history: Patient is a 58-year-old male with a history of progressive primary left knee osteoarthritis. At this point patient has failed conservative treatment measures and has opted to proceed with a elective left total knee arthroplasty. Hospital course: Details of patient's surgery can be found in operative report. Patient tolerated the procedure well and was subsequently transported to orthopedic floor. Patient's orthopeidc and medical care was provided daily. Patient had daily laboratory tests performed for evaluation of overall blood counts. Patient had daily physical therapy to include strengthening range of motion as well as education with walker ambulation. Patient was treated with Lovenox for their postoperative DVT prophylaxis during their inpatient stay. Patient was noted to have a relatively uneventful postoperative course. Patient reported satisfactory pain control with oral pain medications by postoperative day 1. Patient showed satisfactory progress with physical therapy. Patient moved steadily through the program and had no difficulty meeting the goals by postoperative day 1. Given patient's otherwise satisfactory course and having met physical therapy goals, plan is to discharge patient home with health services on postoperative day 1. Discharge condition/disposition: Patient will be discharged home with health services in stable condition. Discharge medications: Instructions are given on resumption of patient's normal daily medications per primary care recommendation, in addition patient will be prescribed tramadol; senna; aspirin 81 mg twice a day 30 days. Discharge instructions: 1. Wound care and infection precautions, keep incision dry and covered while showering, no lotions, creams, moisturizers. No soaking, tubs, pools, hottubs. Do not scrub over the incision. 2. Weight-bear as tolerated with walker / cane until follow-up. 3. Ice and elevate when necessary. Do not exceed 20 minutes per hour with ice pack. 4. Utilize compression sleeve until seen at first follow up appointment. 5. Visiting nursing care. 6. Home physical therapy including home CPM. 7. Pain meds and anticoagulants per prescription. 8. Pain medication has potential to cause constipation. Increase oral fluid and fiber intake. Contact primary care provider if you have not had a bowel movement within 48 hours after discharge 9. No anti-inflammatory medication until discussed at first post operative visit, this including Motrin, Aleve, Mobic, Diclofenac. 10. Follow up in office at 2 weeks postop with Fernandez Capps PA-C / Nj Prasad PA-C 11. Follow up with your primary care doctor 7-10 days after discharge. 12. Contact [facility] with any questions, . Assessment: Left knee osteoarthritis Procedures: Left total knee arthroplasty Patient Condition at Discharge: Good Plan - Discharge Summary Discharge Rx Participant: Yes New Discharge Prescriptions: New Aspirin [Adult Low Dose Aspirin EC] 81 mg PO BID #60 tab traMADol HCL 50 mg PO Q6H #28 tab Sennosides/Docusate Sodium [Senna Plus 8.6-50 mg Softgel] 1 each PO DAILY #20 capsule No Action Esomeprazole Magnesium [NexIUM] 40 mg PO DAILY Valsartan [Diovan] 320 mg PO DAILY amLODIPine [Norvasc] 2.5 mg PO HS Multivitamins, Thera [Multivitamin (formulary)] 1 tab PO DAILY Rosuvastatin Calcium 20 mg PO DAILY hydroCHLOROthiazide 25 mg PO DAILY Acetaminophen [Tylenol Extra Strength] 1,000 mg PO DIRECTED PRN PRN Reason: Pain Discharge Medication List Esomeprazole Magnesium [NexIUM] 40 mg PO DAILY 04/09/23 [History] Multivitamins, Thera [Multivitamin (formulary)] 1 tab PO DAILY 04/09/23 [History] Rosuvastatin Calcium 20 mg PO DAILY 04/18/23 [History] Acetaminophen [Tylenol Extra Strength] 1,000 mg PO DIRECTED PRN 06/21/23 [History] Valsartan [Diovan] 320 mg PO DAILY 06/21/23 [History] amLODIPine [Norvasc] 2.5 mg PO HS 06/21/23 [History] hydroCHLOROthiazide 25 mg PO DAILY 06/21/23 [History] Aspirin [Adult Low Dose Aspirin EC] 81 mg PO BID #60 tab 06/26/23 [Rx] Sennosides/Docusate Sodium [Senna Plus 8.6-50 mg Softgel] 1 each PO DAILY #20 capsule 06/26/23 [Rx] traMADol HCL 50 mg PO Q6H #28 tab 06/26/23 [Rx] Follow up Appointment(s)/Referral(s): Nj Prasad, BOUCHRA [PHYSICIAN WOOD CARVER HAND] - 2 Weeks Patient Instructions/Handouts: Knee Replacement (DC) Activity/Diet/Wound Care/Special Instructions: Orthopedic Discharge Instructions: 1. Wound care and infection precautions, keep incision dry and covered while showering, no lotions, creams, moisturizers. No soaking, pools, hot tubs. Do not scrub over incision. 2. Weight-bear as tolerated with walker / cane until follow-up. 3. Ice and elevate when necessary. Do not exceed 20 minutes per hour with ice pack. 4. Utilize compression sleeve until seen at first follow up appointment. 5. Pain meds and anticoagulants per prescription. 6. Pain medication has potential to cause constipation. Increase oral fluid and fiber intake. Contact primary care provider if you have not had a bowel movement within 48 hours after discharge. 7. No anti-inflammatory medication until discussed at first post operative visit, this including Motrin, Aleve, Mobic, Diclofenac 8. Follow up in office at 2 weeks postop with Fernandez Capps PA-C/Nj Prasad PA-C 9. Follow up with your primary care doctor 7-10 days after discharge. 10. Contact [facility] with any questions, . Wound care instructions: 1. Okay to remove surgical dressing as of 07/02/2023 2. Okay to shower directly over the incision after removal of this Discharge Disposition: HOME WITH HOME HEALTH SERVICES
[2023-06-26] MEDS: ceFAZolin 3 GM in SODIUM CHLORIDE 0.9% 100 ML IVPB SCH (09:39)
[2023-06-26 10:22] VITALS: RESP 18
--- NOTE | 2023-06-26 10:58 | P.PN ---
Subjective Progress Note Date: 06/26/23 Principal diagnosis: Left knee osteoarthritis Patient was seen at bedside this morning sitting up in chair. Patient says he already worked with physical therapy. Patient says he walked around the room and into the hallway up-and-down stairs. Patient says he has urinated since surgery. Patient says he has not had bowel movement yet, however, patient says he has been passing gas. Patient says most the pain is at the front of the knee. Patient denies any radiation of pain. Patient denies chest pain, fever, shortness breath, nausea, vomiting, change in vision, loss of bowel/bladder control. Objective - Vital Signs Vital signs: Vital Signs Temp 98.4 F 06/26/23 02:00 Pulse 120 H 06/26/23 02:00 Resp 17 06/25/23 20:33 BP 118/73 06/26/23 02:00 Pulse Ox 95 06/26/23 02:00 FiO2 Intake & Output 06/25/23 06/26/23 06/26/23 18:59 06:59 18:59 Intake Total 2100 50 Output Total 35 660 Balance 2064 - Weight 127.3 kg 127.3 kg Intake: IV 2099 50 Output: Urine 660 Estimated Blood Loss 35 Other: # Voids 1 - Exam Right knee: Incision is clean, dry, and intact. The silver foam dressing is in good condition. There is minimal soft tissue swelling and ecchymosis surrounding the medial and lateral aspects of the incision. Calf is soft, no tenderness with palpation. Plantar flexion, dorsiflexion, EHL, FHL are intact. Sensory exam to light touch throughout the extremity is intact, dorsal pedis pulses 2+. Assessment and Plan Assessment: 1. Left knee osteoarthritis - Postoperative day #1 status post left total knee arthroplasty Plan: 1. Left knee osteoarthritis - left total knee arthroplasty performed yesterday, 06/25/2023. Patient stable bedside this morning. Patient does have a walker for home. Discharge home today with health services. 2. Appreciate medical management 3. Pain management - tramadol 4. DVT prophylaxis - Lovenox in hospital. Going home with aspirin 81 mg twice a day 30 days 5. GI prophylaxis - senna 6. PT/OT - weightbearing as tolerated with walker 7. Encourage incentive spirometer use 8. Discharge planning - discharge home today with health services Time with Patient: Less than 30
[2023-06-26 11:38] VITALS: BP 150/84; PULSE 101; TEMP 98.4
--- NOTE | 2023-06-26 12:22 | P.CONS ---
History of Present Illness - Reason for Consult Consult date: 06/26/23 - Chief Complaint Status post knee surgery - History of Present Illness * 58-year-old gentleman with past medical history significant for hypertension, gastroesophageal reflux disease, paroxysmal tachycardia was admitted for elective knee surgery procedure * Medicine team was consulted for postoperative medical management. * Home medications were reviewed patient takes amlodipine, hydrochlorothiazide, losartan, rosuvastatin at home which was continued * She was noted to have sinus a Cardia however asymptomatic heart rate around 101. Patient said he has followed up outpatient with this provider for this. * Patient ambulated asymptomatic since during my encounter patient was cleared for discharge with recommendation to follow up outpatient with PCP REVIEW OF SYSTEMS: CONSTITUTIONAL: No fever, no malaise, no fatigue. HEENT: No recent visual problems or hearing problems. Denied any sore throat. CARDIOVASCULAR: No chest pain, orthopnea, PND, no palpitations, no syncope. PULMONARY: No shortness of breath, no cough, no hemoptysis. GASTROINTESTINAL: No diarrhea, no nausea, no vomiting, no abdominal pain. NEUROLOGICAL: No headaches, no weakness, no numbness. HEMATOLOGICAL: Denies any bleeding or petechiae. GENITOURINARY: Denies any burning micturition, frequency, or urgency. MUSCULOSKELETAL/RHEUMATOLOGICAL: Denies any joint pain, swelling, or any muscle pain. ENDOCRINE: Denies any polyuria or polydipsia. The rest of the 14-point review of systems is negative. PHYSICAL EXAMINATION: GENERAL: The patient is alert and oriented x3, not in any acute distress. Well developed, well nourished. HEENT: Pupils are round and equally reacting to light. EOMI. No scleral icterus. No conjunctival pallor. Normocephalic, atraumatic. No pharyngeal erythema. No thyromegaly. CARDIOVASCULAR: S1 and S2 present. No murmurs, rubs, or gallops. PULMONARY: Chest is clear to auscultation, no wheezing or crackles. ABDOMEN: Soft, nontender, nondistended, normoactive bowel sounds. No palpable organomegaly. MUSCULOSKELETAL: left knee banage no limitation to range of motion EXTREMITIES: No cyanosis, clubbing, or pedal edema. NEUROLOGICAL: Gross neurological examination did not reveal any focal deficits. SKIN: No rashes. Past Medical History Past Medical History: GERD/Reflux, Hypertension, Osteoarthritis (OA) Additional Past Medical History / Comment(s): DDD , hx diverticulitis., ayesha knee pain History of Any Multi-Drug Resistant Organisms: None Reported Past Surgical History: Orthopedic Surgery Additional Past Surgical History / Comment(s): LEFT ROTATOR CUFF, RIGHT & LEFT KNEE ARTHROSCOPY , HIATAL HERNIA REPAIR. Past Anesthesia/Blood Transfusion Reactions: No Reported Reaction Past Psychological History: No Psychological Hx Reported Smoking Status: Never smoker Past Alcohol Use History: Occasional Past Drug Use History: None Reported - Past Family History Mother Family Medical History: No Reported History Sister(s) Family Medical History: Cancer Additional Family Medical History / Comment(s): BREAST Medications and Allergies Home Medications Medication Instructions Recorded Confirmed Type Esomeprazole Magnesium [NexIUM] 40 mg PO DAILY 04/09/23 06/21/23 History Multivitamins, Thera [Multivitamin 1 tab PO DAILY 04/09/23 06/21/23 History (formulary)] Rosuvastatin Calcium 20 mg PO DAILY 04/18/23 06/21/23 History Acetaminophen [Tylenol Extra 1,000 mg PO DIRECTED PRN 06/21/23 06/21/23 History Strength] Valsartan [Diovan] 320 mg PO DAILY 06/21/23 06/21/23 History amLODIPine [Norvasc] 2.5 mg PO HS 06/21/23 06/21/23 History hydroCHLOROthiazide 25 mg PO DAILY 06/21/23 06/21/23 History Aspirin [Adult Low Dose Aspirin EC] 81 mg PO BID #60 tab 06/26/23 Rx Sennosides/Docusate Sodium [Senna 1 each PO DAILY #20 capsule 06/26/23 Rx Plus 8.6-50 mg Softgel] traMADol HCL 50 mg PO Q6H #28 tab 06/26/23 Rx Allergies Allergy/AdvReac Type Severity Reaction Status Date / Time hydrocodone bitartrate AdvReac Hallucinati Verified 06/25/23 13:15 [From [facility]] ons Physical Exam Vitals: Vital Signs Temp Pulse Pulse Pulse Resp BP Pulse Ox 06/26/23 11:32 98.4 F 101 H 101 H 18 150/84 06/26/23 07:56 98.7 F 113 H 18 138/77 97 06/26/23 02:00 98.4 F 120 H 118/73 95 06/25/23 23:45 120 H 156/82 06/25/23 20:33 97.6 F 111 H 17 157/91 97 06/25/23 20:00 99 18 167/78 97 06/25/23 19:30 99 18 165/70 96 06/25/23 19:00 99 18 163/72 97 06/25/23 18:44 94 16 158/69 95 06/25/23 18:29 93 16 158/70 98 06/25/23 18:14 89 16 162/70 97 06/25/23 17:59 88 16 157/70 96 06/25/23 17:44 97.5 F L 86 16 156/76 98 06/25/23 14:02 91 16 138/83 97 06/25/23 13:57 94 16 138/83 98 06/25/23 13:22 98.2 F 100 16 155/84 98 Intake and Output 06/25/23 06/26/23 06/26/23 22:59 06:59 14:59 Intake Total 1850 100 Output Total 35 660 Balance 1815 -660 100 Intake: IV 1850 Intake, IV Titration 100 Amount ceFAZolin 3 gm In Sodium 100 Chloride 0.9% 100 ml @ 200 mls/hr IVPB Q8HR [facility] Rx#:[id number] Output: Urine 660 Estimated Blood Loss 35 Other: # Voids 1 Weight 127.3 kg Assessment and Plan Assessment: Assessment and plan Status post left knee arthroplasty Hypertension Hyperlipidemia Paroxysmal tachycardia * Patient seen by orthopedic and cleared for discharge. * From medical standpoint patient presented baseline. EKG obtained shows sinus tachycardia. Patient asymptomatic. Outpatient follow-up with PCP recommended * Home medications reviewed and reconciled * questions answered at bedside
== END 2023-06-26 12:45 | disposition home health service (06) ==
LOC: OR 13:03 → 4SSUR 17:44 → OR 06-26 08:46 → 4SSUR 06-26 08:48 → OR 06-26 12:45 → 4SSUR 06-26 12:45
PROVIDERS: ADMIT Orthopaedic Surgery; ATTEND Orthopaedic Surgery
DX: M17.12 Unilateral primary osteoarthritis, left knee (principal); I10 Essential (primary) hypertension; I47.9 Paroxysmal tachycardia, unspecified; K57.90 Diverticulosis of intestine, part unspecified, without perforation or abscess without bleeding; K21.9 Gastro-esophageal reflux disease without esophagitis; K22.70 Barrett's esophagus without dysplasia; M21.162 Varus deformity, not elsewhere classified, left knee; E78.5 Hyperlipidemia, unspecified; E66.9 Obesity, unspecified; Z68.36 Body mass index [BMI] 36.0-36.9, adult; Z79.899 Other long term (current) drug therapy; Z88.5 Allergy status to narcotic agent; Z98.890 Other specified postprocedural states; Z80.3 Family history of malignant neoplasm of breast
CPT/HCPCS: 27447; 96372; 97161; 64999; 64448; 73560; G0378; C1776; C1713 ×2; C1751; J2250; J1200; J1100; J0690 ×2; J2405; J1650; J1170 ×2; J2795; J2704; J2001

== ENCOUNTER → 2024-01-23 | Outpatient (CLI) | payer MEDICARE ==
--- NOTE | 2024-01-24 12:23 | US ---
EXAMINATION TYPE: US duplex aorta DATE OF EXAM: 01/23/2024 COMPARISON: NONE CLINICAL INDICATION: Male, 58 years old with history of Z13.6 ENCOUNTER FOR SCREENING FOR CARDIOVASCU LAR D; screening per patient, no symptoms, not a smoker, no family history TECHNIQUE: Multiple sonographic images of the abdominal aorta are obtained. FINDINGS: EXAM MEASUREMENTS: Abdominal Aorta: Proximal: obscured by bowel gas Mid: 2.0 x 2.1cm Distal: 1.9 x 1.8cm Bifurcation: Right Iliac: 1.3 x 1.3cm Left Iliac: 1.2 x 1.5cm ASSISTANT AUDITOR NOTES: large habitus with bowel gas, limits study, portions seen appeared to be wnl IMPRESSION: No diagnostic evidence of aortic aneurysm as visualized.
== END | disposition home or self-care (01) ==
LOC: RADUSWWP 07:56
PROVIDERS: ATTEND Family Medicine
DX: Z13.6 Encounter for screening for cardiovascular disorders (principal)
CPT/HCPCS: 76706

== ENCOUNTER 2024-03-11 06:21 | Day surgery (SDC) | payer MEDICARE ==
[2024-03-11] MEDS ORDERED: LIDOCAINE 1% (10MG/ML) FOR IV START INTRADERMA PRN (06:35)
[2024-03-11] MEDS: LACTATED RINGERS 1,000 ML IV SCH (06:54)
[2024-03-11 06:56] VITALS: RESP 16; TEMP 97.6
[2024-03-11] MEDS ORDERED: PROPOFOL 10 MG/ML 20 ML VIAL IV ONE (07:25)
[2024-03-11] MEDS ORDERED: LIDOCAINE 1% INJ 10MG/ML (20 ML MDV) ONE (07:25)
--- NOTE | 2024-03-11 07:45 | P.PCN ---
Date of Procedure: 03/11/24 Procedure(s) Performed: Brief history: Patient is a pleasant 58-year-old white male scheduled for an elective upper endoscopy as well as colonoscopy as a part of evaluation of GERD/Mchugh's esophagus and recent episode of acute sigmoid diverticulitis. He presently is on Nexium 20 mg daily. Procedure performed: Esophagogastroduodenoscopy with biopsy Colonoscopy with biopsy Preoperative diagnosis: GERD/Mchugh's esophagus Episode of acute sigmoid diverticulitis [place] [facility] [place]: After informed consent was obtained from the patient was brought into the endoscopy unit and IV sedation was administered by anesthesia under continuous monitoring. Initially upper endoscopy was done. The Olympus GF 160 video endoscope was inserted inserted into the mouth and esophagus intubated without any difficulty and was gradually advanced into the stomach and duodenum and carefully examined. The bulb and second part of the duodenum appeared normal. The scope was then withdrawn into the stomach adequately insufflated with air and upon careful examination the antrum and body, cardia and fundus appeared normal. The scope was then withdrawn into the esophagus. Small hiatal hernia noted. The GE junction was located at 40 cm to the incisors. There was a long segment of Mchugh's esophagus extending from 38 to 41 cm from the incisors and multiple biopsies were done from this area. Rest of the esophagus appeared normal. Patient tolerated the procedure well. At this time the patient continued to remain sedation. Initial digital rectal examination was normal. Olympus CF 160 video colonoscope was then inserted into the rectum and gradually advanced to the cecum without any difficulty. Careful examination was performed as the scope was gradually being withdrawn. The prep was excellent. The cecum, ascending colon, appeared normal. The transverse colon there was a 5 mm sessile polyp that was removed by cold biopsy. Rest of the transverse colon, descending colon, sigmoid colon and rectum appeared normal. Scattered sigmoid diverticulosis. Retroflexion was performed in the rectum and no lesions were noted. Patient tolerated the procedure well. Impression: 1. 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 Colonoscopy revealed 5 to 6 mm sessile transverse colon polyp status post removal by cold biopsy and scattered sigmoid diverticulosis Recommendations: Findings of this examination were discussed with the patient as well as her family. He was advised to follow-up with the biopsy results. Continue with Nexium 20 mg daily and follow antireflux measures. If the biopsy is negative for dysplasia, recommended repeat upper endoscopy in 3 years and repeat colonoscopy in 5 years
[2024-03-11 08:47] VITALS: BP 122/79; PULSE 87
== END 2024-03-11 08:22 | disposition home or self-care (01) ==
LOC: ORWHC2ENDO 06:21
PROVIDERS: ATTEND Internal Medicine Gastroenterology
DX: D12.3 Benign neoplasm of transverse colon (principal); K31.A0 Gastric intestinal metaplasia, unspecified; K57.30 Diverticulosis of large intestine without perforation or abscess without bleeding; K22.70 Barrett's esophagus without dysplasia; K21.9 Gastro-esophageal reflux disease without esophagitis; K44.9 Diaphragmatic hernia without obstruction or gangrene; I10 Essential (primary) hypertension; N40.0 Benign prostatic hyperplasia without lower urinary tract symptoms; Z88.1 Allergy status to other antibiotic agents; Z79.899 Other long term (current) drug therapy
CPT/HCPCS: 88305; 45380; 43239; J2001; J2704

== ENCOUNTER → 2024-06-24 | Outpatient (CLI) | payer MEDICARE ==
--- NOTE | 2024-06-24 16:49 | US ---
EXAMINATION TYPE: US kidneys/renal and bladder DATE OF EXAM: 06/24/2024 COMPARISON: NONE CLINICAL INDICATION: Male, 59 years old with history of N28.1 CYST OF KIDNEY, ACQUIRED; Pt states kid van cysts visualized on outside MRI EXAM MEASUREMENTS: Right Kidney: 11.9 x 6.1 x 6.1 cm Left Kidney: 12.7 x 5.8 x 5.5 cm Right Kidney: No evidence of hydro, cystic lesion with septation upper pole= 1.4 x 1.0 x 2.0 cm Left Kidney: No evidence of hydro, cystic lesion mid/medial= 2.3 x 1.4 x 2.3 cm Bladder: wnl Bilateral Jets seen: Yes IMPRESSION: No evidence of hydronephrosis or nephrolithiasis. Simple appearing renal cysts.
== END | disposition home or self-care (01) ==
LOC: RADUSWWP 15:29
PROVIDERS: ATTEND Family Medicine
DX: N28.1 Cyst of kidney, acquired (principal)
CPT/HCPCS: 76770